=== PATIENT | female | born 1975 | race Native Hawaiian/Other Pacific Islander ===

== ENCOUNTER 2018-09-25 15:39 | Inpatient (IN) | payer OTHER ==
[2018-09-25] MEDS ORDERED: SODIUM CHLORIDE 0.9% 1,000 ML IV STA (16:06)
[2018-09-25] MEDS ORDERED: MAG HYDROX/AL HYDROX/SIMETH 30 ML, HYOSCYAMINE ELIXIR 10 ML, CIMETIDINE HCL 300 MG, LID... PO STA ×4 (16:07)
[2018-09-25] MEDS ORDERED: ONDANSETRON 4 MG/2 ML VIAL IVP STA (16:07)
[2018-09-25 16:19] LABS: Basophils % (A) 0 %; Eosinophils # (A) 0.1 k/uL (0-0.7); Eosinophils % (A) 1 %; HCT 44.4 % (34.0-46.0); HGB 14.9 gm/dL (11.4-16.0); Lymphocytes # (A) 1.4 k/uL (1.0-4.8); Lymphocytes % (A) 10 %; MCH 28.6 pg (25.0-35.0); MCHC 33.6 g/dL (31.0-37.0); MCV 85.1 fL (80.0-100.0); Mean Platelet Volume 7.2; Monocytes # (A) 0.3 k/uL (0-1.0); Monocytes % (A) 2 %; Neutrophils # (A) 11.3 k/uL (1.3-7.7); Neutrophils % (A) 86 %; Platelet Count 318 k/uL (150-450); RBC 5.22 m/uL (3.80-5.40); RDW 12.9 % (11.5-15.5); WBC 13.1 k/uL (3.8-10.6)
[2018-09-25 16:32] LABS: ALT 44 U/L (9-52); AST 70 U/L (14-36); Albumin 4.7 g/dL (3.5-5.0); Alkaline Phosphatase 123 U/L (38-126); Amylase <30 U/L (30-110); Anion Gap 15 mmol/L; Blood Urea Nitrogen 13 mg/dL (7-17); Calcium 10.1 mg/dL (8.4-10.2); Carbon Dioxide 22 mmol/L (22-30); Chloride 100 mmol/L (98-107); Glucose 349 mg/dL (74-99); Lipase 51 U/L (23-300); Magnesium 1.3 mg/dL (1.6-2.3); Potassium 4.5 mmol/L (3.5-5.1); Sodium 137 mmol/L (137-145); Total Bilirubin 0.6 mg/dL (0.2-1.3); Total Protein 8.4 g/dL (6.3-8.2)
--- NOTE | 2018-09-25 16:40 | ED ---
General Adult HPI - General Chief complaint: Nausea/Vomiting/Diarrhea Stated complaint: Vomiting Time Seen by Provider: 09/25/18 15:55 Source: patient Mode of arrival: ambulatory Limitations: no limitations - History of Present Illness Initial comments: 43-year-old female with a past medical history of anemia, menstrual disorder presents to the emergency department for a chief complaint of burning chest pain 10 days. Patient states the pain starts in her chest it radiates to her back. Patient states that over the past and days and has been intermittent in severity. She states it has been so severe at times that she is nauseous. Today patient states it has been nonstop and she has vomited due to the pain. Patient states when the pain is severe she does have associated shortness of breath but otherwise does not feel short of breath. Patient states sitting up makes the pain feel better. Otherwise she is not sure what makes the pain feel worse. Patient denies abdominal pain. Patient has no other complaints at this time including abdominal pain, headache, or visual changes. - Related Data Home Medications Medication Instructions Recorded Confirmed Omeprazole Magnesium [PriLOSEC OTC] 20 mg PO ONCE PRN 09/25/18 09/25/18 Ranitidine HCl 150 mg PO ONCE PRN 09/25/18 09/25/18 Allergies Allergy/AdvReac Type Severity Reaction Status Date / Time latex Allergy Rash/Hives Verified 09/25/18 16:17 codeine AdvReac Nausea & Verified 09/25/18 16:17 Vomiting levofloxacin [From Levaquin] AdvReac Nausea & Verified 09/25/18 16:17 Vomiting Review of Systems ROS Statement: Those systems with pertinent positive or pertinent negative responses have been documented in the HPI. ROS Other: All systems not noted in ROS Statement are negative. Past Medical History Additional Past Medical History / Comment(s): menstrual disorder, current yeast infection, anemia, transfusion 10/2013 History of Any Multi-Drug Resistant Organisms: None Reported Past Surgical History: Ablation, Section, Tonsillectomy Additional Past Surgical History / Comment(s): benign lymph node removed in neck , D&C Past Anesthesia/Blood Transfusion Reactions: Postoperative Nausea & Vomiting ( PONV) Additional Past Anesthesia/Blood Transfusion Reaction / Comment(s): states severe Past Psychological History: No Psychological Hx Reported Smoking Status: Never smoker Past Alcohol Use History: Rare Past Drug Use History: None Reported General Exam Limitations: no limitations General appearance: alert, in no apparent distress Head exam: Present: atraumatic, normocephalic, normal inspection Eye exam: Present: normal appearance, PERRL, EOMI. Absent: scleral icterus, conjunctival injection, periorbital swelling ENT exam: Present: normal exam, mucous membranes moist Neck exam: Present: normal inspection. Absent: tenderness, meningismus, lymphadenopathy Respiratory exam: Present: normal lung sounds bilaterally. Absent: respiratory distress, wheezes, rales, rhonchi, stridor Cardiovascular Exam: Present: regular rate, normal rhythm, normal heart sounds. Absent: systolic murmur, diastolic murmur, rubs, gallop, clicks GI/Abdominal exam: Present: soft, tenderness (tenderness noted to epigastric area. No tenderness in the right or left upper quadrants. Minimal left lower quadrant tenderness, no right lower quadrant tenderness.), normal bowel sounds. Absent: distended, guarding, rebound, rigid Course Vital Signs 09/25/18 15:49 Temperature 97.5 F L Pulse Rate 92 Respiratory 18 Rate Blood Pressure 132/88 O2 Sat by Pulse 100 Oximetry EKG Findings - EKG Comments: EKG Findings:: 16:08 normal sinus rhythm, ventricular rate 91, IL interval 154, QTc 472. 16:59 normal sinus rhythm, ventricular rate 82, QRS sabianist 78, QTc 462 Medical Decision Making - Medical Decision Making 43-year-old female presents to the emergency department for a chief complaint of burning chest pain 10 days. Patient states it has been intermittent for the past 10 days but today did worsen and has been constant. Patient states the pain radiates to her back. Patient states she does get short of breath when she has this pain as well as diaphoretic. Patient has also been nauseous and vomiting. Patient denies any past cardiac history. She denies any significant family history. On exam patient does have epigastric tenderness noted, lungs are clear to all station bilaterally. Regular rate and rhythm, no murmurs noted. CBC is unremarkable however troponin is elevated at 0.325. Total creatine kinase is elevated at 251 and CK-MB is elevated at 10.2. Patient was given aspirin. CT was ordered to ensure there was no dissection as patient was having back pain which was negative. Patient was then started on heparin. Amylase and lipase are stable. Magnesium is low at 1.3. Patient was started on 3 g of magnesium replacement. Glucose is elevated at 349, patient does not have any history of diabetes. Patient was given 5 units of insulin IV. Patient will be admitted to telemetry for an STEMI, hypomagnesemia, and hyper glycemia. - Lab Data Result diagrams: 18 16:06 12 16:06 Lab Results 09/25/18 09/25/18 09/25/18 Range/Units 16:06 16:06 16:06 WBC 13.1 H (3.8-10.6) k/uL RBC 5.22 (3.80-5.40) m/uL Hgb 14.9 (11.4-16.0) gm/dL Hct 44.4 (34.0-46.0) % MCV 85.1 (80.0-100.0) fL MCH 28.6 (25.0-35.0) pg MCHC 33.6 (31.0-37.0) g/dL RDW 12.9 (11.5-15.5) % Plt Count 318 (150-450) k/uL Neutrophils % 86 % Lymphocytes % 10 % Monocytes % 2 % Eosinophils % 1 % Basophils % 0 % Neutrophils # 11.3 H (1.3-7.7) k/uL Lymphocytes # 1.4 (1.0-4.8) k/uL Monocytes # 0.3 (0-1.0) k/uL Eosinophils # 0.1 (0-0.7) k/uL Basophils # 0.0 (0-0.2) k/uL PT (9.0-12.0) sec INR (<1.2) APTT (22.0-30.0) sec Sodium 137 (137-145) mmol/L Potassium 4.5 (3.5-5.1) mmol/L Chloride 100 (98-107) mmol/L Carbon Dioxide 22 (22-30) mmol/L Anion Gap 15 mmol/L BUN 13 (7-17) mg/dL Creatinine 0.46 L (0.52-1.04) mg/dL Est GFR (CKD-EPI)AfAm >90 (>60 ml/min/1.73 sqM) Est GFR (CKD-EPI)NonAf >90 (>60 ml/min/1.73 sqM) Glucose 349 H (74-99) mg/dL Calcium 10.1 (8.4-10.2) mg/dL Magnesium 1.3 L (1.6-2.3) mg/dL Total Bilirubin 0.6 (0.2-1.3) mg/dL AST 70 H (14-36) U/L ALT 44 (9-52) U/L Alkaline Phosphatase 123 (38-126) U/L Total Creatine Kinase 251 H (30-135) U/L CK-MB (CK-2) 10.2 H (0.0-2.4) ng/mL CK-MB (CK-2) Rel Index 4.1 Troponin I 0.325 H* (0.000-0.034) ng/mL Total Protein 8.4 H (6.3-8.2) g/dL Albumin 4.7 (3.5-5.0) g/dL Amylase <30 L (30-110) U/L Lipase 51 (23-300) U/L 09/25/18 Range/Units 16:06 WBC (3.8-10.6) k/uL RBC (3.80-5.40) m/uL Hgb (11.4-16.0) gm/dL Hct (34.0-46.0) % MCV (80.0-100.0) fL MCH (25.0-35.0) pg MCHC (31.0-37.0) g/dL RDW (11.5-15.5) % Plt Count (150-450) k/uL Neutrophils % % Lymphocytes % % Monocytes % % Eosinophils % % Basophils % % Neutrophils # (1.3-7.7) k/uL Lymphocytes # (1.0-4.8) k/uL Monocytes # (0-1.0) k/uL Eosinophils # (0-0.7) k/uL Basophils # (0-0.2) k/uL PT 10.0 (9.0-12.0) sec INR 0.9 (<1.2) APTT 20.8 L (22.0-30.0) sec Sodium (137-145) mmol/L Potassium (3.5-5.1) mmol/L Chloride (98-107) mmol/L Carbon Dioxide (22-30) mmol/L Anion Gap mmol/L BUN (7-17) mg/dL Creatinine (0.52-1.04) mg/dL Est GFR (CKD-EPI)AfAm (>60 ml/min/1.73 sqM) Est GFR (CKD-EPI)NonAf (>60 ml/min/1.73 sqM) Glucose (74-99) mg/dL Calcium (8.4-10.2) mg/dL Magnesium (1.6-2.3) mg/dL Total Bilirubin (0.2-1.3) mg/dL AST (14-36) U/L ALT (9-52) U/L Alkaline Phosphatase (38-126) U/L Total Creatine Kinase (30-135) U/L CK-MB (CK-2) (0.0-2.4) ng/mL CK-MB (CK-2) Rel Index Troponin I (0.000-0.034) ng/mL Total Protein (6.3-8.2) g/dL Albumin (3.5-5.0) g/dL Amylase (30-110) U/L Lipase (23-300) U/L Disposition Clinical Impression: NSTEMI (non-ST elevated myocardial infarction), Hypomagnesemia, Hyperglycemia Disposition: ADMITTED IP TO THIS HOSP Condition: Good Is patient prescribed a controlled substance at d/c from ED?: No Referrals: Christopher Bangura MD [Primary Care Provider] - 1-2 days Time of Disposition: 18:45
[2018-09-25 16:41] LABS: INR 0.9 (<1.2)
[2018-09-25 16:48] LABS: Creatine Kinase MB 10.2 ng/mL (0.0-2.4)
[2018-09-25 16:49] LABS: Troponin I 0.325 ng/mL (0.000-0.034)
[2018-09-25 16:51] LABS: Partial Thromboplastin Time 20.8 sec (22.0-30.0)
[2018-09-25] MEDS ORDERED: Magnesium Replacement Protocol 1 EACH MISC MISCELLANE PRN (16:53)
[2018-09-25] MEDS ORDERED: METOCLOPRAMIDE 5 MG/ML 2 ML VIAL IVP STA (17:35)
[2018-09-25] MEDS ORDERED: ASPIRIN 81 MG PO STA (17:37)
[2018-09-25] MEDS: MAGNESIUM SULFATE-D5W PMX 1 GM in DEXTROSE/WATER 1 100ML.BAG IVPB SCH ×3 (17:44→22:41)
--- NOTE | 2018-09-25 18:09 | CT ---
EXAMINATION TYPE: CT ChestAbdPelvis w con DATE OF EXAM: 09/25/2018 COMPARISON: None HISTORY: chest pain, vomiting CT DLP: 734.4 mGycm Automated exposure control for dose reduction was used. CONTRAST: CT scan of the chest, abdomen and pelvis is performed without Oral Contrast and with IV Contrast, pat ient injected with 100 mL of Isovue 370. FINDINGS: There is minimal interstitial increased density in the lower lung hughes and more on the left side. H eart appears enlarged. There is no pericardial effusion. There is no pleural effusion. There is no me diastinal adenopathy. There is no evidence of thoracic aortic aneurysm or dissection. There are no hi lar masses. There is slight decreased density in the liver consistent with fatty infiltration. There is no discre te liver mass. Gallbladder appears normal. Bile ducts are not dilated. Spleen and pancreas appear nor mal. The stomach appears normal. There is no adrenal mass. Kidneys show satisfactory contrast opacification. There is no hydronephrosi s. There is no retroperitoneal adenopathy. Bladder distends smoothly. There is no inguinal hernia. There is no evidence of a pelvic mass. Append ix appears normal. There is no free fluid in the pelvis. There is no evidence of mesenteric edema or adenopathy. I see no intestinal wall thickening. There are no dilated loops. There are a few small si gmoid diverticula. The thoracic and lumbar spine are intact. IMPRESSION: There is minimal pulmonary interstitial density that is nonspecific and could relate to i nterstitial pneumonia. Mild cardiomegaly. Fatty infiltration of the liver. No acute abnormality seen in the abdomen and pelvis.
[2018-09-25] MEDS ORDERED: HEPARIN SODIUM,PORCINE 5,000 UNIT/ML 1 ML VIAL IV PRN (18:31)
[2018-09-25] MEDS ORDERED: HEPARIN SODIUM,PORCINE 5,000 UNIT/ML 1 ML VIAL IV ONE (18:31)
[2018-09-25] MEDS ORDERED: HEPARIN SOD,PORK IN 0.45% NACL 25,000 UNIT in 0.45% NACL 1 500ML.BAG IV SCH (18:45)
[2018-09-25] MEDS ORDERED: INSULIN REGULAR 100 UNIT/ML VIAL IV ONE (18:46)
[2018-09-25 20:27] LABS: Glucose,Whole Blood 300 mg/dL (75-99)
[2018-09-25] MEDS ORDERED: PANTOPRAZOLE 40 MG TABLET PO PRN (20:33)
[2018-09-25] MEDS: ONDANSETRON 4 MG/2 ML VIAL IVP PRN (20:45)
[2018-09-25] MEDS: NITROGLYCERIN SL TABS 0.4 MG TAB SUBLINGUAL PRN ×2 (20:45→20:59)
[2018-09-25] MEDS: METOPROLOL TARTRATE 25 MG TAB PO SCH (20:59)
[2018-09-25] MEDS: INSULIN ASPART 100 UNIT/ML 1 ML 10 ML VIAL SQ SCH (21:02)
[2018-09-25] MEDS: PANTOPRAZOLE 40 MG/10 ML VIAL IVP SCH (21:04)
[2018-09-25 22:52] LABS: Creatine Kinase MB 31.2 ng/mL (0.0-2.4)
[2018-09-25 22:58] LABS: Troponin I 1.89 ng/mL (0.000-0.034)
[2018-09-25] MEDS ORDERED: TEMAZEPAM 15 MG CAP PO PRN (23:17)
[2018-09-25] MEDS ORDERED: ACETAMINOPHEN TAB 500 MG TAB PO PRN (23:17)
[2018-09-25] MEDS ORDERED: NITROGLYCERIN OINT 1 INCH/GM PACKET TOPICAL STA (23:19)
[2018-09-25] MEDS: ALPRAZolam 0.25 MG TAB PO PRN (23:31)
--- NOTE | 2018-09-25 23:38 | XR ---
EXAMINATION TYPE: XR chest 1V portable DATE OF EXAM: 09/25/2018 COMPARISON: NONE HISTORY: Possible heart failure. Short of breath. TECHNIQUE: Single frontal view of the chest is obtained. FINDINGS: There is slight coarsening of the lung markings. Costophrenic angles are clear. There is n o overt heart failure. There are chest leads. Bony thorax is intact. IMPRESSION: Coarse lung markings. No heart failure seen.
[2018-09-25 23:54] LABS: Appearance,Urine Clear (Clear); Bilirubin,Urine Negative (Negative); Blood,Urine Small (Negative); Color,Urine Yellow; Glucose,Urine (UA) 4+ (Negative); Leukocyte Esterase,Urine Negative (Negative); Mucus,Urine Rare /hpf; Nitrite,Urine Negative (Negative); PH, Urine 5.5 (5.0-8.0); Protein,Urine 1+ (Negative); RBC,Urine 3 /hpf (0-5); Squamous Epithelial Cell,Urine 3 /hpf (0-4); Urobilinogen,Urine <2.0 mg/dL (<2.0); WBC,Urine 8 /hpf (0-5)
[2018-09-26 00:07] LABS: Specific Gravity,Urine 1.049 (1.001-1.035)
[2018-09-26 00:09] LABS: Ketones,Urine 2+ (Negative)
[2018-09-26] MEDS: NITROGLYCERIN SL TABS 0.4 MG TAB SUBLINGUAL PRN (01:53)
[2018-09-26 02:04] LABS: D-Dimer 0.51 mg/L FEU (<0.60)
[2018-09-26] MEDS ORDERED: SODIUM CHLORIDE 0.9% 1,000 ML in EMPTY BAG 1 BAG IV ONE (02:06)
[2018-09-26] MEDS ORDERED: ATORVASTATIN 80 MG TAB PO STA (02:06)
[2018-09-26] MEDS ORDERED: ASPIRIN 325 MG TAB PO STA (02:06)
[2018-09-26 02:07] LABS: Glucose,Whole Blood 310 mg/dL (75-99)
[2018-09-26] MEDS ORDERED: IV FLUID CONTINUATION 1,000 ML IV ONE (02:40)
[2018-09-26] MEDS ORDERED: VERAPAMIL 2.5 MG/ML 2 ML AMP ONE (02:50)
[2018-09-26] MEDS ORDERED: LIDOCAINE 1% INJ 10MG/ML (20 ML MDV) ONE (02:50)
[2018-09-26] MEDS ORDERED: MIDAZOLAM 2 MG/2 ML VIAL IV ONE (02:55)
[2018-09-26] MEDS ORDERED: LIDOCAINE 1% INJ 10MG/ML (20 ML MDV) SQ ONE (03:04)
[2018-09-26] MEDS: VERAPAMIL SYRINGE (5 MG/10 ML) IV ONE ×2 (03:07→04:00)
[2018-09-26] MEDS ORDERED: fentaNYL (PF) 50 MCG/ML 2 ML AMP ONE (03:09)
[2018-09-26] MEDS ORDERED: fentaNYL (PF) 50 MCG/ML 2 ML AMP IV ONE (03:11)
[2018-09-26] MEDS ORDERED: BIVALIRUDIN BOLUS 250 MG/50 ML IV ONE (03:22)
[2018-09-26] MEDS ORDERED: BIVALIRUDIN 250 MG in SODIUM CHLORIDE 0.9% 50 ML IV ONE (03:29)
[2018-09-26] MEDS ORDERED: IOPAMIDOL-370 100ML BTL INJ ONE ×2 (03:46→03:59)
[2018-09-26] MEDS ORDERED: ONDANSETRON 4 MG/2 ML VIAL ONE (03:49)
[2018-09-26] MEDS ORDERED: ONDANSETRON 4 MG/2 ML VIAL IVP ONE (03:51)
[2018-09-26] MEDS ORDERED: NITROGLYCERIN 1000MCG/10ML SYRINGE INTRACORON ONE (03:52)
[2018-09-26] MEDS ORDERED: niCARdipine Syringe (1,000 mcg/10 mL) INTRACORON ONE (03:55)
[2018-09-26] MEDS ORDERED: TICAGRELOR 90 MG TAB ONE (03:57)
[2018-09-26] MEDS ORDERED: TICAGRELOR 90 MG TAB PO ONE (03:59)
[2018-09-26] MEDS ORDERED: ZOLPIDEM 5 MG TAB PO PRN (04:06)
[2018-09-26] MEDS ORDERED: ATROPINE SULFATE 0.1 MG/ML 10ML SYRINGE IV PRN (04:06)
[2018-09-26] MEDS ORDERED: NITROGLYCERIN SL TABS 0.4 MG TAB SUBLINGUAL PRN (04:06)
[2018-09-26] MEDS ORDERED: RX INFO: IV CONTRAST WAS GIVEN 1 EACH MISC MISCELLANE PRN (04:06)
[2018-09-26] MEDS ORDERED: MAG HYDROX/AL HYDROX/SIMETH 30 ML CUP PO PRN (04:06)
[2018-09-26] MEDS ORDERED: FUROSEMIDE 10 MG/ML 4 ML VIAL ONE (04:15)
[2018-09-26 04:30] LABS: Glucose,Whole Blood 294 mg/dL (75-99)
[2018-09-26 05:38] LABS: Basophils % (A) 0 %; Eosinophils # (A) 0.1 k/uL (0-0.7); Eosinophils % (A) 0 %; HCT 43.6 % (34.0-46.0); HGB 14.4 gm/dL (11.4-16.0); Lymphocytes # (A) 1.1 k/uL (1.0-4.8); Lymphocytes % (A) 7 %; MCH 28.2 pg (25.0-35.0); MCV 85.5 fL (80.0-100.0); Monocytes # (A) 0.6 k/uL (0-1.0); Monocytes % (A) 4 %; Neutrophils % (A) 87 %; Platelet Count 316 k/uL (150-450); RDW 13.1 % (11.5-15.5)
[2018-09-26 05:54] LABS: Anion Gap 9 mmol/L; Blood Urea Nitrogen 12 mg/dL (7-17); Calcium 9.3 mg/dL (8.4-10.2); Carbon Dioxide 25 mmol/L (22-30); Chloride 104 mmol/L (98-107); Cholesterol 222 mg/dL (<200); Glucose 314 mg/dL (74-99); HDL Cholesterol 66 mg/dL (40-60); LDL Cholesterol,Calculated 120 mg/dL (0-99); Magnesium 1.8 mg/dL (1.6-2.3); Potassium 4.2 mmol/L (3.5-5.1); Sodium 138 mmol/L (137-145); Triglycerides 179 mg/dL (<150)
[2018-09-26 06:10] LABS: Creatine Kinase MB 93.5 ng/mL (0.0-2.4)
[2018-09-26] MEDS: ONDANSETRON 4 MG/2 ML VIAL IVP PRN (06:32)
[2018-09-26] MEDS ORDERED: METOCLOPRAMIDE 5 MG/ML 2 ML VIAL IVP PRN (06:34)
[2018-09-26] MEDS: SODIUM CHLORIDE 0.9% 1,000 ML IV SCH ×2 (06:40→17:54)
[2018-09-26] MEDS: ALPRAZolam 0.25 MG TAB PO PRN (07:05)
--- NOTE | 2018-09-26 07:24 | HP ---
HISTORY AND PHYSICAL I am covering for Dr. Bangura. DATE OF SERVICE: 09/25/2017 CHIEF COMPLAINT: Vomiting and chest pain. HISTORY OF PRESENT ILLNESS: This is a 43-year-old woman with a past medical history of multiple medical problems including anemia, transfusions, history of uterine ablation being followed by Dr. Bangura in the outpatient setting, is fairly active physically. The patient is planning to go on a half marathon in [employer] and patient is training with the treadmill. About 10 days ago patient had chest disorder in the anterior part of the chest which radiated to the back, which recurred on multiple occasions and the patient also had some shortness of breath and nausea and the patient unable to keep anything down. The patient has taken antacid medications because of . Patient came to [facility], admitted for further evaluation and treatment. The troponin is found to be 0.325 and subsequently 1.89. EKG showed ST-T changes. Patient admitted for further evaluation and treatment. Her blood sugar is also elevated. There is no history of fever, chills, or rigors. No history of headache, loss of consciousness, seizures at this time. The pain was characterized as vague discomfort and not associated with setting of palpitations. The patient was also found to have high blood sugars at 349 pm and 300 at this time. PAST MEDICAL HISTORY: History of uterine ablation, anemia. HOME MEDICATIONS ARE: 1. Ranitidine 150 mg once. 2. Omeprazole once. ALLERGIES: LATEX, CODEINE, LEVAQUIN. FAMILY HISTORY: History of heart disease in the family. SOCIAL HISTORY: No history of smoking. No history of alcohol intake. REVIEW OF SYSTEMS: ENT: No diminished hearing or vision. CARDIOVASCULAR: As mentioned earlier. RESPIRATORY: As mentioned earlier. GI: As mentioned earlier. : No dysuria. NERVOUS SYSTEM: No numbness or weakness. ALLERGY/IMMUNOLOGY: No asthma. MUSCULOSKELETAL: As mentioned earlier. HEMATOLOGY: As mentioned earlier. RHEUMATOLOGY: As mentioned earlier. ENDOCRINE. No history of diabetes or hypothyroidism. CONSTITUTIONAL: As mentioned earlier. DERMATOLOGY: Negative. PSYCHIATRY: As mentioned earlier. DERMATOLOGY: Negative. PHYSICAL EXAM: Patient is alert, oriented x3. NERVOUS SYSTEM: Higher functions as mentioned earlier, moves all 4 limbs, no focal limbs. LYMPHATICS: No lymph node enlargement in the neck or axillae. SKIN: No ulcer, rash, bleeding. LABS: WBC 13.1, hemoglobin 14.9. APTT 20.8, creatinine is 0.46 and glucose 349. Magnesium is 1.3. His CK-MB is 10.2. Amylase less than 30. Acetone is negative. ASSESSMENT: 1. Acute non-ST segment elevation myocardial infarction. 2. Troponin 1.890. 3. New onset uncontrolled diabetes mellitus type 2 with hypoglycemia. 4. Hypomagnesemia. 5. Increased WBC, possibly reactive. 6. History of anemia. 7. History of uterine ablation. RECOMMENDATION: In this 43-year-old woman who presented with multiple complex medical issues, at this time will monitor the patient closely. Unstable angina protocol, acute coronary artery syndrome protocol. Otherwise, I would also recommend Cardiology consultation for possible cardiac cath. Repeat EKG and I would also recommend a portable chest x -ray, replace magnesium. The patient blood sugar is elevated. The patient probably had underlying diabetes mellitus type 2. Also. currently will continue with insulin coverage and scale also. Overall prognosis guarded because of multiple complex medical issues. Proton pump inhibitors will be given and a copy of this forwarded to Dr. Bangura who is the primary physician. Discussed with the patient, understands and agrees and Dr. Bangura will follow. MMODL / IJN: [id number] / MTDHelio
[2018-09-26 07:25] LABS: Glucose,Whole Blood 302 mg/dL (75-99)
--- NOTE | 2018-09-26 08:06 | P.HPIM ---
History of Present Illness H&P Date: 09/26/18 Chief Complaint: Chest pressure. This is a history of physical and a 43-year-old female who has no significant past medical history. The patient states for the last 10 days she' s been having intermittent chest pressure and thought it was heartburn. The pressure radiates to her back and she was having diaphoresis and nausea. Evaluation in emergency room showed an STEMI and she has been appropriately treated by cardiology at this time. Unfortunately, she has significant risk factors after evaluation including diabetes and cholesterol issues. The patient has been stabilized after treatment. Interestingly enough, she is quite active and has been training for half marathons intermittently over the last year. However, she admits her diet has been poor. No polyuria or polydipsia stated. Review of Systems Constitutional: Denies chills, Denies fever Eyes: denies blurred vision, denies pain Ears, nose, mouth and throat: Denies headache, Denies sore throat Cardiovascular: Reports as per HPI Respiratory: Reports as per HPI Gastrointestinal: Denies abdominal pain, Denies diarrhea, Denies nausea, Denies vomiting Genitourinary: Denies dysuria, Denies hematuria Past Medical History Additional Past Medical History / Comment(s): menstrual disorder, current yeast infection, anemia, transfusion 10/2013 History of Any Multi-Drug Resistant Organisms: None Reported Past Surgical History: Ablation, Section, Tonsillectomy Additional Past Surgical History / Comment(s): benign lymph node removed in neck , D&C Past Anesthesia/Blood Transfusion Reactions: Postoperative Nausea & Vomiting ( PONV) Additional Past Anesthesia/Blood Transfusion Reaction / Comment(s): states severe Past Psychological History: No Psychological Hx Reported Smoking Status: Never smoker Past Alcohol Use History: Rare Past Drug Use History: None Reported Medications and Allergies Home Medications Medication Instructions Recorded Confirmed Type Omeprazole Magnesium [PriLOSEC OTC] 20 mg PO ONCE PRN 09/25/18 09/25/18 History Ranitidine HCl 150 mg PO ONCE PRN 09/25/18 09/25/18 History Allergies Allergy/AdvReac Type Severity Reaction Status Date / Time latex Allergy Rash/Hives Verified 09/25/18 16:17 codeine AdvReac Nausea & Verified 09/25/18 16:17 Vomiting levofloxacin [From Levaquin] AdvReac Nausea & Verified 09/25/18 16:17 Vomiting Physical Exam Vitals: Vital Signs Temp Pulse Pulse Pulse Resp BP BP 09/26/18 07:00 95 16 126/86 09/26/18 06:30 87 16 114/73 09/26/18 06:00 99 16 118/80 09/26/18 05:30 99 16 120/86 09/26/18 05:15 86 16 119/81 09/26/18 05:00 87 16 116/83 09/26/18 04:45 98.1 F 90 16 120/79 09/26/18 01:51 96 142/87 09/25/18 23:03 86 18 109/70 09/25/18 20:21 98.3 F 100 16 136/85 09/25/18 19:30 108 H 11 L 130/95 09/25/18 19:01 101 H 10 L 142/100 09/25/18 18:30 24 09/25/18 18:00 84 26 H 136/100 09/25/18 17:30 96 19 154/104 09/25/18 17:00 86 15 140/95 09/25/18 16:30 84 13 148/110 09/25/18 16:02 09/25/18 15:49 97.5 F L 92 18 132/88 Pulse Ox 09/26/18 07:00 96 09/26/18 06:30 96 09/26/18 06:00 98 09/26/18 05:30 98 09/26/18 05:15 97 09/26/18 05:00 97 09/26/18 04:45 96 09/26/18 01:51 97 09/25/18 23:03 94 L 09/25/18 20:21 98 09/25/18 19:30 09/25/18 19:01 09/25/18 18:30 09/25/18 18:00 09/25/18 17:30 98 09/25/18 17:00 09/25/18 16:30 98 09/25/18 16:02 94 L 09/25/18 15:49 100 Intake and Output 09/25/18 09/26/18 09/26/18 22:59 06:59 14:59 Intake Total 124.8 Balance 124.8 Intake: IV 124.8 Other: # Voids 1 1 Weight 87.543 kg 83.1 kg - Constitutional General appearance: no acute distress - EENT Eyes: EOMI - Neck Neck: no lymphadenopathy - Respiratory Respiratory: bilateral: CTA - Cardiovascular Rhythm: regular Heart sounds: normal: S1, S2 Abnormal Heart Sounds: no S3 Gallop - Gastrointestinal General gastrointestinal: soft, no tenderness - Integumentary Integumentary: no cellulitis - Neurologic Neurologic: CNII-XII intact - Musculoskeletal Musculoskeletal: gait normal - Psychiatric Psychiatric: A&O x's 3, appropriate affect, intact judgment & insight Results CBC & Chem 7: 09/26/18 05:23 09/26/18 05:23 Labs: Abnormal Lab Results - Last 24 Hours (Table) 09/25/18 09/25/18 09/25/18 Range/Units 16:06 16:06 16:06 WBC 13.1 H (3.8-10.6) k/uL Neutrophils # 11.3 H (1.3-7.7) k/uL APTT (22.0-30.0) sec Creatinine 0.46 L (0.52-1.04) mg/dL Glucose 349 H (74-99) mg/dL POC Glucose (mg/dL) (75-99) mg/dL Magnesium 1.3 L (1.6-2.3) mg/dL AST 70 H (14-36) U/L Total Creatine Kinase 251 H (30-135) U/L CK-MB (CK-2) 10.2 H (0.0-2.4) ng/mL Troponin I 0.325 H* (0.000-0.034) ng/mL Total Protein 8.4 H (6.3-8.2) g/dL Triglycerides (<150) mg/dL Cholesterol (<200) mg/dL LDL Cholesterol, Calc (0-99) mg/dL HDL Cholesterol (40-60) mg/dL Amylase <30 L (30-110) U/L Ur Specific [place] (1.001-1.035) Urine Protein (Negative) Urine Glucose (UA) (Negative) Urine Ketones (Negative) Urine Blood (Negative) Urine WBC (0-5) /hpf Urine Mucus (None) /hpf 09/25/18 09/25/18 09/25/18 Range/Units 16:06 20:25 21:36 WBC (3.8-10.6) k/uL Neutrophils # (1.3-7.7) k/uL APTT 20.8 L (22.0-30.0) sec Creatinine (0.52-1.04) mg/dL Glucose (74-99) mg/dL POC Glucose (mg/dL) 300 H (75-99) mg/dL Magnesium (1.6-2.3) mg/dL AST (14-36) U/L Total Creatine Kinase 815 H (30-135) U/L CK-MB (CK-2) 31.2 H (0.0-2.4) ng/mL Troponin I 1.890 H* (0.000-0.034) ng/mL Total Protein (6.3-8.2) g/dL Triglycerides (<150) mg/dL Cholesterol (<200) mg/dL LDL Cholesterol, Calc (0-99) mg/dL HDL Cholesterol (40-60) mg/dL Amylase (30-110) U/L Ur Specific [place] (1.001-1.035) Urine Protein (Negative) Urine Glucose (UA) (Negative) Urine Ketones (Negative) Urine Blood (Negative) Urine WBC (0-5) /hpf Urine Mucus (None) /hpf 09/25/18 09/26/18 09/26/18 Range/Units 23:41 01:55 04:29 WBC (3.8-10.6) k/uL Neutrophils # (1.3-7.7) k/uL APTT (22.0-30.0) sec Creatinine (0.52-1.04) mg/dL Glucose (74-99) mg/dL POC Glucose (mg/dL) 310 H 294 H (75-99) mg/dL Magnesium (1.6-2.3) mg/dL AST (14-36) U/L Total Creatine Kinase (30-135) U/L CK-MB (CK-2) (0.0-2.4) ng/mL Troponin I (0.000-0.034) ng/mL Total Protein (6.3-8.2) g/dL Triglycerides (<150) mg/dL Cholesterol (<200) mg/dL LDL Cholesterol, Calc (0-99) mg/dL HDL Cholesterol (40-60) mg/dL Amylase (30-110) U/L Ur Specific [place] 1.049 H (1.001-1.035) Urine Protein 1+ H (Negative) Urine Glucose (UA) 4+ H (Negative) Urine Ketones 2+ H (Negative) Urine Blood Small H (Negative) Urine WBC 8 H (0-5) /hpf Urine Mucus Rare H (None) /hpf 09/26/18 09/26/18 09/26/18 Range/Units 05:23 05:23 05:23 WBC 15.0 H (3.8-10.6) k/uL Neutrophils # 13.0 H (1.3-7.7) k/uL APTT (22.0-30.0) sec Creatinine 0.46 L (0.52-1.04) mg/dL Glucose 314 H (74-99) mg/dL POC Glucose (mg/dL) (75-99) mg/dL Magnesium (1.6-2.3) mg/dL AST (14-36) U/L Total Creatine Kinase 3085 H* (30-135) U/L CK-MB (CK-2) 93.5 H (0.0-2.4) ng/mL Troponin I 167.000 H* (0.000-0.034) ng/mL Total Protein (6.3-8.2) g/dL Triglycerides 179 H (<150) mg/dL Cholesterol 222 H (<200) mg/dL LDL Cholesterol, Calc 120 H (0-99) mg/dL HDL Cholesterol 66 H (40-60) mg/dL Amylase (30-110) U/L Ur Specific [place] (1.001-1.035) Urine Protein (Negative) Urine Glucose (UA) (Negative) Urine Ketones (Negative) Urine Blood (Negative) Urine WBC (0-5) /hpf Urine Mucus (None) /hpf 09/26/18 09/26/18 Range/Units 05:23 07:24 WBC (3.8-10.6) k/uL Neutrophils # (1.3-7.7) k/uL APTT 35.2 H (22.0-30.0) sec Creatinine (0.52-1.04) mg/dL Glucose (74-99) mg/dL POC Glucose (mg/dL) 302 H (75-99) mg/dL Magnesium (1.6-2.3) mg/dL AST (14-36) U/L Total Creatine Kinase (30-135) U/L CK-MB (CK-2) (0.0-2.4) ng/mL Troponin I (0.000-0.034) ng/mL Total Protein (6.3-8.2) g/dL Triglycerides (<150) mg/dL Cholesterol (<200) mg/dL LDL Cholesterol, Calc (0-99) mg/dL HDL Cholesterol (40-60) mg/dL Amylase (30-110) U/L Ur Specific [place] (1.001-1.035) Urine Protein (Negative) Urine Glucose (UA) (Negative) Urine Ketones (Negative) Urine Blood (Negative) Urine WBC (0-5) /hpf Urine Mucus (None) /hpf Thrombosis Risk Factor Assmnt - Choose All That Apply Each Factor Represents 1 point: Age 41-60 years, Obesity (BMI >25) Other congenital or acquired thrombophilia - If yes, enter type in comment: No Thrombosis Risk Factor Assessment Total Risk Factor Score: 2 Thrombosis Risk Factor Assessment Level: Low Risk Assessment and Plan (1) Hyperglycemia Current Visit: Yes Status: Acute Code(s): R73.9 - HYPERGLYCEMIA, UNSPECIFIED SNOMED Code(s): 53898146 (2) Hypomagnesemia Current Visit: Yes Status: Acute Code(s): E83.42 - HYPOMAGNESEMIA SNOMED Code(s): 409352990 (3) NSTEMI (non-ST elevated myocardial infarction) Current Visit: Yes Status: Acute Code(s): I21.4 - NON-ST ELEVATION (NSTEMI) MYOCARDIAL INFARCTION SNOMED Code(s): 26826766 (4) Dysfunctional uterine bleeding Current Visit: No Status: Acute Code(s): N93.8 - OTHER SPECIFIED ABNORMAL UTERINE AND VAGINAL BLEEDING SNOMED Code(s): 21725849 Plan: We'll continue to follow cardiology treatment. Question need for endocrinology as sugar has been elevated. New. Check hemoglobin A1c if not done. Check CBC and CMP in a.m. We'll continue follow with consultants. See orders otherwise. Time with Patient: Greater than 30
[2018-09-26] MEDS: INSULIN ASPART 100 UNIT/ML 1 ML 10 ML VIAL SQ SCH ×6 (08:25→21:32)
[2018-09-26] MEDS: ASPIRIN 81 MG PO SCH (08:28)
[2018-09-26] MEDS: METOPROLOL TARTRATE 25 MG TAB PO SCH ×2 (08:28→21:31)
[2018-09-26] MEDS: PANTOPRAZOLE 40 MG/10 ML VIAL IVP SCH (08:28)
[2018-09-26] MEDS: LOSARTAN 25 MG TAB PO SCH (08:29)
[2018-09-26] MEDS: ATORVASTATIN 40 MG TAB PO SCH (08:29)
[2018-09-26] MEDS ORDERED: FUROSEMIDE 20 MG TAB PO SCH (09:00)
[2018-09-26] MEDS ORDERED: ASPIRIN 325 MG TAB PO SCH (09:00)
[2018-09-26] MEDS: FUROSEMIDE 20 MG TAB PO SCH (09:30)
[2018-09-26] MEDS: POTASSIUM CHLORIDE ER 10 MEQ TAB.ER.PRT PO SCH (09:31)
--- NOTE | 2018-09-26 10:12 | LTR ---
DATE OF SERVICE: 09/26/[address] Bangura: Thank you for the opportunity to participate in the care of Mrs. Angela Aquino. I am pleased to report to you that this lady had an excellent angiographic result. She presented with a 1 weeks history of chest pain that culminated in a prolonged persistent episode of chest pain with nausea and vomiting. Because of increased troponin and more prominent EKG changes, she underwent cardiac cath around 3:00 am this morning with excellent angiographic result of LAD that was totally occluded. She has no significant disease in other vessels. Thank you for your referral. Please call for questions. With kindest regards, Sincerely, MMELSAL / IJN: [id number] /
--- NOTE | 2018-09-26 10:12 | CC ---
CARDIAC CATHETERIZATION REPORT DATE OF SERVICE: 09/26/2018. PROCEDURE: 1. Left heart catheterization and coronary angiography. 2. PTCA and stenting of a totally occluded mid LAD performed in the setting of a non- ST elevation NV with 2 drug-eluting stents. PERFORMED BY: Dr. Joan Smart. SEDATION: Moderate conscious sedation time was 58 minutes. Patient received Versed and fentanyl and her oxygen saturation, hemodynamics and EKG were monitored closely. CLINICAL INFORMATION: Mrs. 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 She is a fairly active person. She does treadmill nearly 3 miles a session almost 3-4 times a week on a regular basis and does yoga. For about a week or so, she has been having discomfort in the chest on and off, but she did not think too much of it. She had a prolonged episode of discomfort today at yoga with nausea and vomiting. She went home and finally she continued to have discomfort in the chest which persisted. She came into the hospital. She had ST-T abnormality in the precordial leads with mild troponin elevation and was placed on a heparin drip in a telemetry unit. However, repeat troponin went up to 1.8 and she had a recurrence of pain with increased pressure in the chest and therefore she was advised prompt cardiac catheterization and brought down to the cardiac agriculture laborer. I saw the patient in the lab, evaluated her and again reviewed with her the rationale, risks, benefits, options and proceeded to perform the procedure. PROCEDURE NOTE: Under local anesthesia and strict aseptic precautions, a 6-Saudi Arabian introducer was placed in the right radial artery. Using a 3.5 left and a 4.0 right Monica catheters, I performed coronary angiography and a pigtail catheter was used to check LV pressures. Following the coronary angiography and left heart catheterization, I proceeded to perform PCI. A JL 3.5 6-Saudi Arabian guide catheter was used to cannulate the left coronary artery. The initial catheter I had difficulty aspirating the blood. Therefore I switched over to another JL3 0.5. With this, I got good seating. A run-through wire was used to cross the total occlusion in the mid LAD. Predilatation was performed with a 3.0 caliber 12 mm Trek balloon. Subsequently, I deployed a 3.5 caliber Xience stent at 13 atmospheres at the site of the lesion. This seemed to be a very difficult lesion requiring higher pressures. An additional 8 mm 3.5 caliber Xience stent was telescoped distal to the previous stent. The patient had relief of chest pain. EKG changes of ST- T abnormality in the precordial leads persisted. Both the stents were then dilated with a 3.75 caliber 15 mm long NC Trek balloon up to 14 atmospheres. Excellent angiographic result was achieved without complication. The sheath was then taken out and a TR band applied as per protocol and the saturation in the fingers of the right hand was 98%. The patient tolerated the procedure well without complications. She received Brilinta 180 mg p.o. and also received Angiomax bolus and infusion. She had some nausea on the table that required some Zofran. Excellent angiographic result without complication was achieved. CARDIAC CATHETERIZATION FINDINGS: Left ventricle end-diastolic pressure was 26 mmHg without any gradient across aortic valve. LV gram was not performed. CORONARY ANGIOGRAPHY FINDINGS: RIGHT CORONARY ARTERY: Technically this is a dominant vessel, gives off a conus branch that is almost parallel to the RCA origin superior to it. The dominant RCA distally bifurcates into 2 branches, has no significant disease in the RCA and gives off a large PDA a smaller PLV, both of which supply a fairly good amount of myocardium. This is a superdominant RCA. There is a conus branch that comes off from the RCA and the location of the conus branch almost looks like a separate but parallel origin superior to the RCA origin. Even the conus branch is free of significant disease. LEFT MAIN: The left main coronary artery is a short patent disease-free vessel that bifurcates into LAD and circumflex. LEFT ANTERIOR DESCENDING CORONARY ARTERY: This is a good caliber vessel extends along the anterior wall and gives off a good-sized diagonal branch and a septal branch and after this there is a smaller diagonal branch. Then the vessel is totally occluded without any antegrade flow. The LAD therefore has a total 100% occlusion in the mid portion after large and a small diagonal and a good-sized septal branch. There is no antegrade flow noted. LEFT POSTERIOR CIRCUMFLEX CORONARY ARTERY: This vessel is nondominant, gives off a single obtuse marginal, runs in the AV groove has minor irregularities but no significant disease is noted. FINAL IMPRESSION: This patient has a total occlusion of the mid LAD, which is the culprit vessel for her presentation with precordial ST changes. There is no significant disease in the nondominant circumflex and the dominant RCA is free of significant disease, but the filling pressures are elevated without any gradient across aortic valve. An LV-gram was not performed. PCI PROCEDURE RESULT: PCI of a totally occluded mid LAD was performed with 2 drug-eluting stents of 3.5 caliber 12 mm proximal and 8 mm distal. This was a Xience drug-eluting stents. Excellent angiographic result without complication was achieved. Results were discussed with the patient in detail. I could not reach any family members and patient's 's cellphone was going to [place], so we he left a message before the procedure and also after the completion of the procedure. She was sent to the ICU in a stable condition. MMTITA / ROSANGELAN: [id number] /
--- NOTE | 2018-09-26 10:36 | CONS ---
CONSULTATION Mrs. 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 She also does yoga. For about a week and a half, and to be more precise on September 15, this lady had her first episode of chest discomfort when she was on the treadmill after walking 1 mile. She stopped and felt better, did not have any issues for the next 3 days. Subsequently, she had again episodes of chest tightness, heaviness and pressure, which she did not think too much about. However, she came in for yoga early this morning and during the Yoga she went home on to have mild chest discomfort, persistent nausea, vomiting, and she went home and finally came into the hospital at the insistence of her . After arrival, she did not have much chest discomfort, had a very subtle EKG changes in the anterior wall with mild troponin elevation. She was placed on heparin drip and admitted to the telemetry unit, but she had more persistent pain and more prominent precordial ST and T-wave abnormality and therefore she was advised coronary angiography. Dr. Dumont talked to the telemetry unit and advised prompt cardiac catheterization and activated the cardiac cath team. I saw the patient in the logging rafter laborer, reviewed with her the rationale, risks, benefits, options and proceeded with cardiac cath. I tried to reach the , but he did not answer the phone and therefore we left a message from the logging rafter laborer. At the time of my evaluation, she was having about a 1 to 2/10 discomfort in the chest with a precordial ST and T-wave abnormality. PAST MEDICAL HISTORY: Unremarkable for any major medical problems, specifically she does not have any hypertension, diabetes, myocardial infarction or CVA. MEDICATIONS: She occasionally takes some Zantac or omeprazole. ALLERGIES: She is allergic to CODEINE and LEVAQUIN and LATEX. CORONARY RISK FACTORS: Essentially no risk factors. Patient is not a smoker. Has no hypertension, diabetes and cholesterol status is unknown. PHYSICAL EXAMINATION: Blood pressure is 128/70, pulse rate is 90 per minute, irregular. HEENT: Unremarkable. Fundus was not examined by me. Neck is supple. No JVD. I do not hear a carotid bruit. Heart exam reveals S1, S2 heard normally. No rub, murmur or gallop. Lungs are clear. Abdomen is soft, nontender. Lower extremities reveal normal pulses. No edema. Central nervous system is normal. EKG revealed precordial ST and T-wave changes with elevated troponin suggestive of non- ST elevation SC. IMPRESSION: 1. Acute non-ST elevation myocardial infarction with persistent chest pain and elevation in troponin. 2. Patient has been having angina for at least a week and a half or so with symptoms strongly suggestive of angina that she has ignored and continued to exercise. RECOMMENDATIONS: Prompt cardiac cath was advised and this was performed expeditiously. Rationale, risks, benefits, options were explained to the patient in detail. I could not reach her by phone and a message was left for him. RILEY / ARNOLDO: [id number] /
[2018-09-26 10:42] VITALS: BMI 30.4
[2018-09-26 12:01] LABS: Glucose,Whole Blood 292 mg/dL (75-99)
[2018-09-26] MEDS ORDERED: INSULIN DETEMIR 100 UNIT/ML 10 ML VIAL SQ ONE (16:30)
--- NOTE | 2018-09-26 16:30 | PN ---
PROGRESS NOTE This is a 43-year-old lady whom I evaluated early this morning when she had chest pain and more prominent precordial ST-T changes and therefore underwent a cardiac catheterization which revealed total occlusion of mid LAD that was promptly stented with excellent angiographic result. Procedure was performed from the right radial approach. She is doing very well, seems a bit exhausted. Denies any chest pain. She is slightly tachycardic and there are fine rales. I am going to add a small dose of oral Lasix and check a B P tomorrow. Echo revealed a hypokinetic segment involving the mid and apical septal wall as well as the adjoining anteroapical wall, but I think most of this is hopefully stunning and she will recover very well. I discussed the findings on the echo as well as the cardiac cath with the patient and her . Her was not there immediately after the procedure. Her vital signs are stable. Blood pressure is 110/70. Pulse rate is about 88 per minute. S1 and S2 heard normally. Lungs reveal bilateral fine basal rales. Abdomen is is soft, nontender. Lower extremities reveal palpable pulses. Right radial site is clean and dry and the TR band is deflated completely. We will keep her in the ICU and gradually increase activity today. MMODL / IJN: [id number] /
[2018-09-26 17:37] LABS: Glucose,Whole Blood 333 mg/dL (75-99)
[2018-09-26 17:39] LABS: Glucose,Whole Blood 321 mg/dL (75-99)
[2018-09-26 18:32] LABS: Glucose,Whole Blood 382 mg/dL (75-99)
--- NOTE | 2018-09-26 18:32 | ECHOF ---
Referral Reason:NSTEMI---S/P LAD PCI MEASUREMENTS -------- HEIGHT: 165.1 cm WEIGHT: 87.5 kg BP: RVIDd: 2.7 cm (< 3.3) IVSd: 1.4 cm (0.6 - 1.1) LVIDd: 4.4 cm (3.9 - 5.3) LVPWd: 1.2 cm (0.6 - 1.1) IVSs: 1.7 cm LVIDs: 3.3 cm LVPWs: 1.7 cm LA Diam: 3.7 cm (2.7 - 3.8) LAESV Index (A-L): 22.85 ml/m Ao Diam: 3.3 cm (2.0 - 3.7) AV Cusp: 2.1 cm (1.5 - 2.6) MV EXCURSION: 9.761 mm (> 18.000) MV EF SLOPE: 38 mm/s (70 - 150) EPSS: 1.4 cm MV E Lee: 0.94 m/s MV DecT: 171 ms MV A Lee: 1.26 m/s MV E/A Ratio: 0.74 FINDINGS -------- Sinus rhythm. This was a technically good study. The left ventricular size is normal. There is moderate concentric left ventricular hypertrophy. O verall left ventricular systolic function is moderate-severely impaired with, an EF between 30 - 35 % . Mid anterior LV wall motion is hypokinetic. Mid anteroseptal LV wall motion is hypokinetic. Apical anterior LV wall motion is hypokinetic. Apical lateral LV wall motion is hypokinetic. A pical septum LV wall motion is hypokinetic. The right ventricle is normal in size. Normal LA size by volume 22+/-6 ml/m2. The right atrium is normal in size. The aortic valve is trileaflet and appears structurally normal. The mitral valve is normal. Mild mitral regurgitation is present. The tricuspid valve appears structurally normal. Trace/mild (physiologic) pulmonic regurgitation. The aortic root size is normal. Normal inferior vena cava with normal inspiratory collapse consistent with estimated right atrial pre ssure of 5 mmHg. There is no pericardial effusion. CONCLUSIONS -------- 1. Sinus rhythm. 2. This was a technically good study. 3. The left ventricular size is normal. 4. There is moderate concentric left ventricular hypertrophy. 5. Overall left ventricular systolic function is moderate-severely impaired with, an EF between 30 - 35 %. 6. Mid anterior LV wall motion is hypokinetic. 7. Mid anteroseptal LV wall motion is hypokinetic. 8. Apical anterior LV wall motion is hypokinetic. 9. Apical lateral LV wall motion is hypokinetic. 10. Apical septum LV wall motion is hypokinetic. 11. Normal LA size by volume 22+/-6 ml/m2. 12. The aortic valve is trileaflet and appears structurally normal. 13. Mild mitral regurgitation is present. 14. The tricuspid valve appears structurally normal. 15. Trace/mild (physiologic) pulmonic regurgitation. 16. The aortic root size is normal. 17. Normal inferior vena cava with normal inspiratory collapse consistent with estimated right atrial pressure of 5 mmHg. 18. There is no pericardial effusion. CONTROL TOWER RADIO OPERATOR: Marian Colón RDCS
[2018-09-26 21:05] LABS: Glucose,Whole Blood 180 mg/dL (75-99)
[2018-09-26] MEDS: CLOPIDOGREL 75 MG TAB PO SCH (21:31)
[2018-09-27 04:00] LABS: Glucose,Whole Blood 188 mg/dL (75-99)
[2018-09-27] MEDS ORDERED: CLOPIDOGREL 75 MG TAB PO SCH (04:08)
[2018-09-27 05:52] LABS: Basophils % (A) 0 %; Eosinophils % (A) 0 %; HCT 40.2 % (34.0-46.0); Lymphocytes # (A) 2.5 k/uL (1.0-4.8); Lymphocytes % (A) 24 %; MCH 27.6 pg (25.0-35.0); MCHC 32.4 g/dL (31.0-37.0); MCV 85.3 fL (80.0-100.0); Mean Platelet Volume 7.2; Monocytes # (A) 0.6 k/uL (0-1.0); Monocytes % (A) 6 %; Neutrophils # (A) 6.9 k/uL (1.3-7.7); Neutrophils % (A) 68 %; Platelet Count 258 k/uL (150-450); RBC 4.71 m/uL (3.80-5.40); WBC 10.2 k/uL (3.8-10.6)
[2018-09-27 06:04] LABS: ALT 50 U/L (9-52); AST 131 U/L (14-36); Albumin 3.6 g/dL (3.5-5.0); Alkaline Phosphatase 78 U/L (38-126); Anion Gap 6 mmol/L; Blood Urea Nitrogen 17 mg/dL (7-17); Calcium 8.9 mg/dL (8.4-10.2); Carbon Dioxide 27 mmol/L (22-30); Chloride 103 mmol/L (98-107); Glucose 176 mg/dL (74-99); Magnesium 1.7 mg/dL (1.6-2.3); Potassium 3.7 mmol/L (3.5-5.1); Sodium 136 mmol/L (137-145); Total Bilirubin 0.8 mg/dL (0.2-1.3); Total Protein 6.6 g/dL (6.3-8.2)
[2018-09-27] MEDS: MAGNESIUM SULFATE-D5W PMX 1 GM in DEXTROSE/WATER 1 100ML.BAG IVPB SCH ×2 (06:41→08:48)
[2018-09-27 06:51] LABS: Glucose,Whole Blood 170 mg/dL (75-99)
[2018-09-27] MEDS: INSULIN ASPART 100 UNIT/ML 1 ML 10 ML VIAL SQ SCH ×7 (07:10→20:53)
[2018-09-27 07:50] LABS: Glucose,Whole Blood 210 mg/dL (75-99)
[2018-09-27] MEDS ORDERED: POTASSIUM CHLORIDE ER 20 MEQ TAB.ER PO SCH (08:00)
[2018-09-27] MEDS: FUROSEMIDE 20 MG TAB PO SCH (08:45)
[2018-09-27] MEDS: PANTOPRAZOLE 40 MG/10 ML VIAL IVP SCH (08:45)
[2018-09-27] MEDS: CLOPIDOGREL 75 MG TAB PO SCH (08:45)
[2018-09-27] MEDS: ATORVASTATIN 40 MG TAB PO SCH (08:46)
[2018-09-27] MEDS: LOSARTAN 25 MG TAB PO SCH (08:46)
[2018-09-27] MEDS: ASPIRIN 81 MG PO SCH (08:46)
--- NOTE | 2018-09-27 09:54 | PN ---
PROGRESS NOTE Mrs. Funes is in sinus rhythm. She is doing better, heart rate is better. She has complained of some headache. Her lungs are clear. Her potassium is at 3.7, I will get 20 mEq of potassium, increase activity and plan to move her to telemetry. She has a mid LAD occlusion which was opened up. She has an ejection fraction in the 35% range, but I think most of this is stunning and I expect that there will be much better recovery of LV function. Patient is planning on going to [employer] sometime in the [place] time. I told her that as long as she uses a wheelchair to get around and does not walk 5-6 miles as she had originally planned to do she may be okay. I also advised that she should probably not take the rides, but the patient is not planning on doing this. Vitals are stable. There is no JVD or carotid bruit. S1-S2 heard normally. Lungs are clear. Abdomen and lower extremity exam unchanged. The right radial cath site is clean and dry with good pulse. Plan is to continue current medications, supplement potassium, increase activity and move her to telemetry. Blood pressure in the range of 95-100, we will continue the same medications. MMODL / IJN: [id number] /
[2018-09-27 12:23] LABS: Glucose,Whole Blood 133 mg/dL (75-99)
[2018-09-27] MEDS: POTASSIUM CHLORIDE ER 10 MEQ TAB.ER.PRT PO SCH (12:23)
[2018-09-27] MEDS: METOPROLOL TARTRATE 25 MG TAB PO SCH ×2 (12:24→20:58)
--- NOTE | 2018-09-27 16:42 | P.PN ---
Subjective Progress Note Date: 09/27/18 Principal diagnosis: This is a patient who is postop day #2 4 status post WA with multiple stent placement to the LAD. She is feeling much better. She has an underlying history of newly diagnosed insulin dependent diabetes. The patient otherwise feels much better. No voiding difficulties nor no significant nausea, vomiting or diarrhea stated. Objective - Vital Signs Vital signs: Vital Signs Temp 98 F 09/27/18 12:00 Pulse 87 09/27/18 12:00 Resp 17 09/27/18 12:00 BP 98/64 09/27/18 12:00 Pulse Ox 96 09/27/18 12:00 Intake & Output 09/26/18 09/27/18 09/27/18 18:59 06:59 18:59 Intake Total 825 240 460 Output Total 1050 300 Balance -225 -60 460 Weight 83.1 kg 85 kg Intake: IV 825 240 220 Magnesium Sulfate-D5w Pmx 200 1 gm In Dextrose/Water 1 100ml.bag @ 100 mls/hr IVPB Q1H FILIBERTO Rx#: [id number] Sodium Chloride 0.9% 1, 825 240 20 000 ml @ 75 mls/hr IV . [id number] FILIBERTO Rx#:[id number] Oral 240 Output: Urine 1050 300 Other: Voiding Method Toilet Toilet Toilet # Voids 1 1 2 - Constitutional General appearance: Present: average body habitus - Neck Neck: Present: lymphadenopathy - Respiratory Respiratory: bilateral: CTA - Cardiovascular Rhythm: regular Heart sounds: normal: S1, S2 Abnormal Heart Sounds: Absent: S3 Gallop - Gastrointestinal General gastrointestinal: Present: soft. Absent: tenderness - Neurologic Neurologic: Present: CNII-XII intact. Absent: focal deficits - Labs CBC & Chem 7: 09/27/18 05:09 09/27/18 05:09 Labs: Abnormal Lab Results - Last 24 Hours (Table) 09/26/18 09/26/18 09/26/18 Range/Units 05:23 17:36 17:37 Sodium (137-145) mmol/L Creatinine (0.52-1.04) mg/dL Glucose (74-99) mg/dL POC Glucose (mg/dL) 333 H 321 H (75-99) mg/dL Hemoglobin A1c 9.0 H (4.0-6.0) % AST (14-36) U/L 09/26/18 09/26/18 09/27/18 Range/Units 18:30 21:03 03:58 Sodium (137-145) mmol/L Creatinine (0.52-1.04) mg/dL Glucose (74-99) mg/dL POC Glucose (mg/dL) 382 H 180 H 188 H (75-99) mg/dL Hemoglobin A1c (4.0-6.0) % AST (14-36) U/L 09/27/18 09/27/18 09/27/18 Range/Units 05:09 06:49 07:49 Sodium 136 L (137-145) mmol/L Creatinine 0.48 L (0.52-1.04) mg/dL Glucose 176 H (74-99) mg/dL POC Glucose (mg/dL) 170 H 210 H (75-99) mg/dL Hemoglobin A1c (4.0-6.0) % AST 131 H (14-36) U/L 09/27/18 Range/Units 12:22 Sodium (137-145) mmol/L Creatinine (0.52-1.04) mg/dL Glucose (74-99) mg/dL POC Glucose (mg/dL) 133 H (75-99) mg/dL Hemoglobin A1c (4.0-6.0) % AST (14-36) U/L Assessment and Plan (1) Hyperglycemia Current Visit: Yes Status: Acute Code(s): R73.9 - HYPERGLYCEMIA, UNSPECIFIED SNOMED Code(s): 49771179 (2) Hypomagnesemia Current Visit: Yes Status: Acute Code(s): E83.42 - HYPOMAGNESEMIA SNOMED Code(s): 876698347 (3) NSTEMI (non-ST elevated myocardial infarction) Current Visit: Yes Status: Suspected Code(s): I21.4 - NON-ST ELEVATION ( NSTEMI) MYOCARDIAL INFARCTION SNOMED Code(s): 39074741 (4) Dysfunctional uterine bleeding Current Visit: No Status: Acute Code(s): N93.8 - OTHER SPECIFIED ABNORMAL UTERINE AND VAGINAL BLEEDING SNOMED Code(s): 90360022 Plan: Continue current postop treatment. Continue basal bolus insulin with Humalog sliding scale. Anticipate discharge in the next 24-48 hours if stabilizing and cleared by cardiology. See orders otherwise. Time with Patient: Greater than 30
[2018-09-27 17:11] LABS: Glucose,Whole Blood 159 mg/dL (75-99)
[2018-09-27 20:50] LABS: Glucose,Whole Blood 122 mg/dL (75-99)
[2018-09-27] MEDS: INSULIN DETEMIR 100 UNIT/ML 10 ML VIAL SQ SCH (20:59)
[2018-09-28 04:56] LABS: Basophils % (A) 1 %; Eosinophils # (A) 0.1 k/uL (0-0.7); Eosinophils % (A) 1 %; HCT 36.1 % (34.0-46.0); Lymphocytes # (A) 2.5 k/uL (1.0-4.8); Lymphocytes % (A) 30 %; MCH 28.3 pg (25.0-35.0); MCHC 33.2 g/dL (31.0-37.0); MCV 85.4 fL (80.0-100.0); Mean Platelet Volume 7.2; Monocytes # (A) 0.6 k/uL (0-1.0); Monocytes % (A) 7 %; Neutrophils % (A) 60 %; Platelet Count 243 k/uL (150-450); RBC 4.23 m/uL (3.80-5.40); RDW 12.9 % (11.5-15.5); WBC 8.3 k/uL (3.8-10.6)
[2018-09-28 05:07] LABS: ALT 41 U/L (9-52); AST 67 U/L (14-36); Albumin 3.3 g/dL (3.5-5.0); Alkaline Phosphatase 70 U/L (38-126); Anion Gap 8 mmol/L; Blood Urea Nitrogen 20 mg/dL (7-17); Calcium 8.9 mg/dL (8.4-10.2); Carbon Dioxide 28 mmol/L (22-30); Chloride 103 mmol/L (98-107); Glucose 151 mg/dL (74-99); Magnesium 1.6 mg/dL (1.6-2.3); Sodium 139 mmol/L (137-145); Total Bilirubin 0.6 mg/dL (0.2-1.3); Total Protein 6.2 g/dL (6.3-8.2)
[2018-09-28 07:02] LABS: Glucose,Whole Blood 129 mg/dL (75-99)
[2018-09-28] MEDS: INSULIN ASPART 100 UNIT/ML 1 ML 10 ML VIAL SQ SCH ×7 (07:09→20:36)
--- NOTE | 2018-09-28 08:21 | P.PN ---
Subjective Principal diagnosis: This is a patient who is postop day #2 4 status post [place] with multiple stent placement to the LAD. She is feeling much better. She has an underlying history of newly diagnosed insulin dependent diabetes. The patient otherwise feels much better. No voiding difficulties nor no significant nausea, vomiting or diarrhea stated. Anticipate discharge in the next 24 hours if stabilizing. Objective - Vital Signs Vital signs: Vital Signs Temp 98.3 F 09/28/18 00:00 Pulse 87 09/28/18 00:00 Resp 16 09/28/18 00:00 BP 93/64 09/28/18 03:01 Pulse Ox 94 L 09/28/18 00:00 Intake & Output 09/27/18 09/28/18 09/28/18 18:59 06:59 18:59 Intake Total 460 220 Balance 460 220 Weight 87.3 kg Intake: IV 220 Magnesium Sulfate-D5w Pmx 200 1 gm In Dextrose/Water 1 100ml.bag @ 100 mls/hr IVPB Q1H FILIBERTO Rx#: [id number] Sodium Chloride 0.9% 1, 20 000 ml @ 75 mls/hr IV . [id number] FILIBERTO Rx#:[id number] Oral 240 220 Other: Voiding Method Toilet Toilet # Voids 2 1 1 - Constitutional General appearance: Present: average body habitus - EENT Eyes: Absent: PERRLA - Neck Neck: Present: lymphadenopathy - Respiratory Respiratory: bilateral: CTA - Cardiovascular Rhythm: regular - Gastrointestinal General gastrointestinal: Present: soft. Absent: tenderness - Integumentary Integumentary: Present: normal - Labs CBC & Chem 7: 09/28/18 04:26 09/28/18 04:26 Labs: Abnormal Lab Results - Last 24 Hours (Table) 09/27/18 09/27/18 09/27/18 Range/Units 12:22 17:09 20:49 BUN (7-17) mg/dL Glucose (74-99) mg/dL POC Glucose (mg/dL) 133 H 159 H 122 H (75-99) mg/dL AST (14-36) U/L Total Protein (6.3-8.2) g/dL Albumin (3.5-5.0) g/dL 09/28/18 09/28/18 Range/Units 04:26 07:01 BUN 20 H (7-17) mg/dL Glucose 151 H (74-99) mg/dL POC Glucose (mg/dL) 129 H (75-99) mg/dL AST 67 H (14-36) U/L Total Protein 6.2 L (6.3-8.2) g/dL Albumin 3.3 L (3.5-5.0) g/dL Assessment and Plan (1) Hyperglycemia Current Visit: Yes Status: Acute Code(s): R73.9 - HYPERGLYCEMIA, UNSPECIFIED SNOMED Code(s): 73423291 (2) Hypomagnesemia Current Visit: Yes Status: Acute Code(s): E83.42 - HYPOMAGNESEMIA SNOMED Code(s): 176081705 (3) NSTEMI (non-ST elevated myocardial infarction) Current Visit: Yes Status: Suspected Code(s): I21.4 - NON-ST ELEVATION ( NSTEMI) MYOCARDIAL INFARCTION SNOMED Code(s): 45694697 (4) Dysfunctional uterine bleeding Current Visit: No Status: Acute Code(s): N93.8 - OTHER SPECIFIED ABNORMAL UTERINE AND VAGINAL BLEEDING SNOMED Code(s): 87656706 Plan: Continue current regimen of treatment. Basal bolus insulin protocol has controlled her blood sugar properly. We will probably keep her on this regimen for the short-term. I suspect given her less so changes that she could possibly be on a GLP-1 with basal insulin in the future.
[2018-09-28] MEDS: MAGNESIUM SULFATE-D5W PMX 1 GM in DEXTROSE/WATER 1 100ML.BAG IVPB SCH ×2 (09:46→10:48)
[2018-09-28] MEDS: ASPIRIN 81 MG PO SCH (09:47)
[2018-09-28] MEDS: METOPROLOL TARTRATE 12.5 MG TAB PO SCH ×2 (09:48→20:35)
[2018-09-28] MEDS: PANTOPRAZOLE 40 MG TABLET PO SCH (09:48)
[2018-09-28] MEDS: CLOPIDOGREL 75 MG TAB PO SCH (09:48)
[2018-09-28] MEDS: ATORVASTATIN 40 MG TAB PO SCH (09:50)
[2018-09-28] MEDS: LOSARTAN 25 MG TAB PO SCH (09:50)
[2018-09-28 12:12] LABS: Glucose,Whole Blood 129 mg/dL (75-99)
--- NOTE | 2018-09-28 12:49 | ECHOF ---
Referral Reason:look for improvement in function after DE MEASUREMENTS -------- HEIGHT: 165.1 cm WEIGHT: 87.1 kg BP: FINDINGS -------- Sinus rhythm. Limited Study to compare Echo done 09/26/18. Overall left ventricular systolic function is moderate-severely impaired with, an EF between 30 - 35 %. Mid anterior LV wall motion is hypokinetic. Mid anteroseptal LV wall motion is hypokinetic. Apical anterior LV wall motion is hypokinetic. Apical lateral LV wall motion is hypokinetic. Apical septum LV wall motion is hypokinetic. CONCLUSIONS -------- 1. Sinus rhythm. 2. Limited Study to compare Echo done 09/26/18. 3. Overall left ventricular systolic function is moderate-severely impaired with, an EF between 30 - 35 %. 4. Mid anterior LV wall motion is hypokinetic. 5. Mid anteroseptal LV wall motion is hypokinetic. 6. Apical anterior LV wall motion is hypokinetic. 7. Apical septum LV wall motion is hypokinetic. DISPLAY DECORATOR: Barbie Lakhani RDCS
[2018-09-28] MEDS ORDERED: SODIUM CHLORIDE 0.9% 500 ML 500 ML IV ONE (14:21)
[2018-09-28 17:11] LABS: Glucose,Whole Blood 138 mg/dL (75-99)
--- NOTE | 2018-09-28 20:26 | PN ---
PROGRESS NOTE Mrs. Aquino is doing well today. She had some bouts of hypotension last night. I am going to discontinue the Cozaar, cut back the metoprolol and discontinue the Lasix and potassium as well and give her a fluid bolus and see how she does. She is asymptomatic. Physical exam does not reveal any new murmurs or gallops. Lungs are clear. Abdomen and lower extremity exam unchanged. Blood pressure when I saw her was 94 systolic. We will give her a fluid bolus, hold Cozaar, increase activity, see how she does and I plan to repeat an echo to reassess LV function, although it is too soon to see improvement. I will check it in the light of her hypotension and then re-evaluate her tomorrow for possible discharge. We will increase activity and see how she does. I discussed my thoughts in detail with the patient. RILEY / ARNOLDO: [id number] /
[2018-09-28 20:31] LABS: Glucose,Whole Blood 126 mg/dL (75-99)
[2018-09-28] MEDS: INSULIN DETEMIR 100 UNIT/ML 10 ML VIAL SQ SCH (20:47)
[2018-09-29 05:33] LABS: Basophils % (A) 1 %; Eosinophils # (A) 0.1 k/uL (0-0.7); Eosinophils % (A) 2 %; HCT 33.4 % (34.0-46.0); HGB 11.3 gm/dL (11.4-16.0); Lymphocytes % (A) 31 %; MCV 85.4 fL (80.0-100.0); Mean Platelet Volume 7.5; Monocytes # (A) 0.4 k/uL (0-1.0); Monocytes % (A) 6 %; Neutrophils # (A) 3.9 k/uL (1.3-7.7); Neutrophils % (A) 59 %; Platelet Count 227 k/uL (150-450); RBC 3.91 m/uL (3.80-5.40); WBC 6.6 k/uL (3.8-10.6)
[2018-09-29 05:55] LABS: Anion Gap 6 mmol/L; Blood Urea Nitrogen 11 mg/dL (7-17); Calcium 8.3 mg/dL (8.4-10.2); Carbon Dioxide 28 mmol/L (22-30); Chloride 103 mmol/L (98-107); Glucose 149 mg/dL (74-99); Magnesium 1.8 mg/dL (1.6-2.3); Phosphorus 4.6 mg/dL (2.5-4.5); Potassium 3.8 mmol/L (3.5-5.1); Sodium 137 mmol/L (137-145)
[2018-09-29 06:46] LABS: Glucose,Whole Blood 143 mg/dL (75-99)
[2018-09-29] MEDS: INSULIN ASPART 100 UNIT/ML 1 ML 10 ML VIAL SQ SCH ×4 (06:48→12:20)
[2018-09-29] MEDS ORDERED: SODIUM CHLORIDE 0.9% 1,000 ML IV SCH (07:15)
[2018-09-29] MEDS ORDERED: MAGNESIUM SULFATE-D5W PMX 1 GM in DEXTROSE/WATER 1 100ML.BAG IVPB ONE (07:19)
--- NOTE | 2018-09-29 07:51 | P.DS ---
Providers Date of admission: 09/25/18 18:40 Attending physician: Christopher Bangura Consults: 09/25/18 18:31 Consult Physician Urgent Consulting Provider: Alberto Queen Consult Reason/Comments: NSTEMI Do you want consulting provider notified?: Yes 09/26/18 04:06 Consult Physician Routine Consulting Provider: [facility] Consult Reason/Comments: Post Interventional patient Do you want consulting provider notified?: Already Contacted Primary care physician: Christopher Bangura - Discharge Diagnosis(es) (1) Hyperglycemia Current Visit: Yes Status: Acute (2) Hypomagnesemia Current Visit: Yes Status: Acute (3) NSTEMI (non-ST elevated myocardial infarction) Current Visit: Yes Status: Suspected (4) Dysfunctional uterine bleeding Current Visit: No Status: Acute Hospital Course: This discharge summary 43-year-old white female essentially admitted for an STEMI. The patient did quite well but had underlying history diabetes which was undiagnosed until this visit. She is placed on basal bolus protocol and did quite well. She has been tolerating her medications but she has had some episodic vital signs decrease in blood pressure. We will titrate medications appropriate in follow-up in 3-5 days. The patient is stable. Patient Condition at Discharge: Good Plan - Discharge Summary Discharge Rx Participant: No New Discharge Prescriptions: New Aspirin 81 mg PO DAILY #30 chew Atorvastatin [Lipitor] 80 mg PO DAILY #30 tab Clopidogrel [Plavix] 75 mg PO DAILY #30 tab Insulin Aspart [Novolog Flexpen] 8 unit SQ AC-TID #1 insuln.pen Insulin Detemir [Levemir Flextouch] 25 units SQ HS #2 ml Metoprolol Tartrate [Lopressor] 12.5 mg PO BID #60 tab Nitroglycerin Sl Tabs [Nitrostat] 0.4 mg SUBLINGUAL Q5M PRN #50 tab PRN Reason: Chest Pain Continue Ranitidine HCl 150 mg PO ONCE PRN PRN Reason: Gi Upset Discontinued Omeprazole Magnesium [PriLOSEC OTC] 20 mg PO ONCE PRN PRN Reason: Gi Upset Discharge Medication List Ranitidine HCl 150 mg PO ONCE PRN 09/25/18 [History] Aspirin 81 mg PO DAILY #30 chew 09/29/18 [Rx] Atorvastatin [Lipitor] 80 mg PO DAILY #30 tab 09/29/18 [Rx] Clopidogrel [Plavix] 75 mg PO DAILY #30 tab 09/29/18 [Rx] Insulin Aspart [Novolog Flexpen] 8 unit SQ AC-TID #1 insuln.pen 09/29/18 [Rx] Insulin Detemir [Levemir Flextouch] 25 units SQ HS #2 ml 09/29/18 [Rx] Metoprolol Tartrate [Lopressor] 12.5 mg PO BID #60 tab 09/29/18 [Rx] Nitroglycerin Sl Tabs [Nitrostat] 0.4 mg SUBLINGUAL Q5M PRN #50 tab 09/29/18 [Rx ] Follow up Appointment(s)/Referral(s): Christopher Bangura MD [Primary Care Provider] - 3 Days Discharge Disposition: HOME SELF-CARE
[2018-09-29] MEDS: SODIUM CHLORIDE 0.9% 250 ML IV SCH ×6 (08:06→09:59)
--- NOTE | 2018-09-29 08:54 | PN ---
PROGRESS NOTE Mrs. Aquino seems to be a little volume depleted. I will give her 2 boluses of IV fluids, increase activity and see how she does. If she does well, we will discharge her today. We will supplement potassium as well. Blood pressure today is 96/60. S1, S2 heard normally. Lungs are clear. Abdomen and lower extremity exam unchanged. Plan is to give some additional volume boluses, increase activity. Plan for discharge later on today. No Stanislav or ARB because of hypotension. MMODL / IJN: [id number] / MTDD
[2018-09-29] MEDS: POTASSIUM CHLORIDE ER 20 MEQ TAB.ER PO SCH ×2 (09:00→09:54)
[2018-09-29] MEDS: ASPIRIN 81 MG PO SCH (09:00)
[2018-09-29] MEDS: CLOPIDOGREL 75 MG TAB PO SCH (09:01)
[2018-09-29] MEDS: ATORVASTATIN 40 MG TAB PO SCH (09:01)
[2018-09-29] MEDS: PANTOPRAZOLE 40 MG TABLET PO SCH (09:02)
[2018-09-29] MEDS: METOPROLOL TARTRATE 12.5 MG TAB PO SCH (09:03)
[2018-09-29] MEDS ORDERED: INFLUENZA VACCINE (6 MOS+) 60 MCG/0.5 ML SYRINGE IM ONE (09:06)
[2018-09-29 11:49] VITALS: RESP 18
[2018-09-29 12:04] LABS: Glucose,Whole Blood 110 mg/dL (75-99)
[2018-09-29 13:38] VITALS: BP 110/56; PULSE 76; TEMP 98.3
== END 2018-09-29 16:08 | disposition home or self-care (01) | DRG 247 ==
LOC: EC 15:39 → 3SCARD 18:40 → 2SICU 09-26 04:09
PROVIDERS: ADMIT Family Medicine; ATTEND Family Medicine
PROC: B2111ZZ Fluoroscopy of Multiple Coronary Arteries using Low Osmolar Contrast (ICD-10-PCS; 2018-09-26)
PROC: 027035Z Dilation of Coronary Artery, One Artery with Two Drug-eluting Intraluminal Devices, Percutaneous Approach (ICD-10-PCS; principal; 2018-09-26 02:35)
PROC: 4A023N7 Measurement of Cardiac Sampling and Pressure, Left Heart, Percutaneous Approach (ICD-10-PCS; 2018-09-26 02:35)
DX: I21.4 Non-ST elevation (NSTEMI) myocardial infarction (principal); E11.65 Type 2 diabetes mellitus with hyperglycemia; E83.42 Hypomagnesemia; E86.9 Volume depletion, unspecified; I25.10 Atherosclerotic heart disease of native coronary artery without angina pectoris; B37.9 Candidiasis, unspecified; I95.9 Hypotension, unspecified; R00.0 Tachycardia, unspecified; D72.829 Elevated white blood cell count, unspecified; Z88.5 Allergy status to narcotic agent; Z88.1 Allergy status to other antibiotic agents; Z91.040 Latex allergy status; Z82.49 Family history of ischemic heart disease and other diseases of the circulatory system
CPT/HCPCS: 36415; 71045; 71260; 74177; 80048; 80053; 80061; 81001; 82009; 82150; 82550; 82553; 83036; 83690; 83735; 84100; 84484; 85025; 85379; 85610; 85730; 90686; 93005; 93306; 93308; 93458; 96361; 96365; 96366; 96368; 96375; 96376; 99285; C1874

== ENCOUNTER 2019-08-22 06:27 | Observation (INO) | payer BC, OTHER ==
[2019-08-22] MEDS ORDERED: ONDANSETRON 4 MG/2 ML VIAL IVP STA (06:40)
[2019-08-22] MEDS ORDERED: SODIUM CHLORIDE 0.9% 500 ML 500 ML IV STA (06:40)
[2019-08-22] MEDS: SODIUM CHLORIDE 0.9% 1,000 ML IV STA ×2 (06:51→10:12)
[2019-08-22 06:57] LABS: Basophils % (A) 0 %; Eosinophils % (A) 0 %; HCT 42.7 % (34.0-46.0); HGB 14.4 gm/dL (11.4-16.0); Lymphocytes # (A) 0.5 k/uL (1.0-4.8); Lymphocytes % (A) 7 %; MCH 28.6 pg (25.0-35.0); MCHC 33.6 g/dL (31.0-37.0); MCV 85.1 fL (80.0-100.0); Mean Platelet Volume 6.2; Monocytes # (A) 0.3 k/uL (0-1.0); Monocytes % (A) 4 %; Neutrophils # (A) 6.6 k/uL (1.3-7.7); Neutrophils % (A) 88 %; Platelet Count 132 k/uL (150-450); RBC 5.02 m/uL (3.80-5.40); RDW 12.8 % (11.5-15.5); WBC 7.6 k/uL (3.8-10.6)
--- NOTE | 2019-08-22 07:06 | ED ---
General Adult HPI - General Chief complaint: Syncope Stated complaint: Fall/Nausea Time Seen by Provider: 08/22/19 06:32 Source: patient, RN notes reviewed Mode of arrival: ambulatory Limitations: no limitations - History of Present Illness Initial comments: This a 44-year-old female presents emergency Department with chief complaint of nausea fever diaphoresis and syncope. Patient states that she's not below the last couple days but that she may just have a slight cold states that she's been having hot and cold chills, felt that she may have influenza. Patient did admit that she had a recent influenza vaccine. She states that she woke up prior to 6 AM this morning states that she had severe nausea states that she'll not get to the bathroom and states that she passed out. Patient has no complaints of chest pain, shortness of breath. Patient states that she had an [place] in September and states that her presenting symptoms were nausea with mild chest pain and reflux. Patient states that she only has nausea at this time. Patient denies any back pain, flank pain. Patient is a known diabetic current blood sugar 96. She states that she wears a sensor. Patient has no dysuria no hematuria no diarrhea no constipation. Patient does admit that she feels dizzy - Related Data Home Medications Medication Instructions Recorded Confirmed Atorvastatin [Lipitor] 80 mg PO HS 08/22/19 08/22/19 Empagliflozin [Jardiance] 25 mg PO DAILY 08/22/19 08/22/19 Insulin Detemir [Levemir Flextouch] 7 units SQ HS 08/22/19 08/22/19 L.acidoph,Paracasei, B.lactis 1 cap PO DAILY 08/22/19 08/22/19 [Probiotic] Losartan Potassium [Cozaar] 25 mg PO HS 08/22/19 08/22/19 Magnesium Oxide [Mag-Ox] 250 mg PO DAILY 08/22/19 08/22/19 Metoprolol Tartrate [Lopressor] 12.5 mg PO QAM 08/22/19 08/22/19 Previous Rx's Medication Instructions Recorded Aspirin 81 mg PO DAILY #30 chew 09/29/18 Clopidogrel [Plavix] 75 mg PO DAILY #30 tab 09/29/18 Allergies Allergy/AdvReac Type Severity Reaction Status Date / Time latex Allergy Rash/Hives Verified 08/22/19 07:32 codeine AdvReac Nausea & Verified 08/22/19 07:32 Vomiting levofloxacin [From Levaquin] AdvReac Nausea & Verified 08/22/19 07:32 Vomiting Review of Systems ROS Statement: Those systems with pertinent positive or pertinent negative responses have been documented in the HPI. ROS Other: All systems not noted in ROS Statement are negative. Past Medical History Past Medical History: Myocardial Infarction ([place]) Additional Past Medical History / Comment(s): menstrual disorder, current yeast infection, anemia, transfusion 10/2013 History of Any Multi-Drug Resistant Organisms: None Reported Past Surgical History: Ablation, Section, Heart Catheterization With Stent, Tonsillectomy Additional Past Surgical History / Comment(s): benign lymph node removed in neck, D&C Past Anesthesia/Blood Transfusion Reactions: Postoperative Nausea & Vomiting (PONV) Additional Past Anesthesia/Blood Transfusion Reaction / Comment(s): states severe Past Psychological History: No Psychological Hx Reported Smoking Status: Never smoker Past Alcohol Use History: Rare Past Drug Use History: None Reported General Exam Limitations: no limitations General appearance: alert, in no apparent distress, other (Diaphoretic) Head exam: Present: atraumatic, normocephalic, normal inspection Eye exam: Present: normal appearance, PERRL, EOMI. Absent: scleral icterus, conjunctival injection, periorbital swelling ENT exam: Present: normal exam, normal oropharynx, mucous membranes moist, TM's normal bilaterally Neck exam: Present: normal inspection. Absent: tenderness, meningismus, lymphadenopathy Respiratory exam: Present: normal lung sounds bilaterally. Absent: respiratory distress, wheezes, rales, rhonchi, stridor Cardiovascular Exam: Present: normal rhythm, tachycardia, normal heart sounds. Absent: systolic murmur, diastolic murmur, rubs, gallop, clicks GI/Abdominal exam: Present: soft, normal bowel sounds. Absent: distended, tenderness, guarding, rebound, rigid Back exam: Absent: CVA tenderness (R), CVA tenderness (L) Neurological exam: Present: alert, oriented X3, CN II-XII intact, reflexes normal. Absent: motor sensory deficit Skin exam: Present: warm, dry, intact, normal color. Absent: rash Course Vital Signs 08/22/19 08/22/19 08/22/19 06:31 06:45 07:00 Temperature 97.8 F Pulse Rate 104 H 105 H 103 H Respiratory 18 11 L 20 Rate Blood Pressure 91/61 110/75 O2 Sat by Pulse 97 98 Oximetry 08/22/19 08/22/19 07:30 08:00 Temperature Pulse Rate 102 H 99 Respiratory 0 L 19 Rate Blood Pressure 99/70 95/74 O2 Sat by Pulse 100 92 L Oximetry EKG Findings - EKG Comments: EKG Findings:: EKG performed at 6:40 sinus tachycardia rate of 101. RI 150 QRS 68 QT/QTC 342/443 Medical Decision Making - Medical Decision Making Patient presented with severe diaphoresis, nausea and dizziness. Patient labs show mild metabolic acidosis, dehydration with acetone positive. Blood sugar less than 200. Patient's EKG shows no acute changes troponin is negative at this time. Patient will be admitted for repeat cardiac enzymes, fluid hydration and blood sugar monitoring. - Lab Data Result diagrams: 08/22/19 06:46 08/22/19 06:46 Lab Results 08/22/19 08/22/19 08/22/19 Range/Units 06:46 06:46 06:46 WBC 7.6 (3.8-10.6) k/uL RBC 5.02 (3.80-5.40) m/uL Hgb 14.4 (11.4-16.0) gm/dL Hct 42.7 (34.0-46.0) % MCV 85.1 (80.0-100.0) fL MCH 28.6 (25.0-35.0) pg MCHC 33.6 (31.0-37.0) g/dL RDW 12.8 (11.5-15.5) % Plt Count 132 L (150-450) k/uL Neutrophils % 88 % Lymphocytes % 7 % Monocytes % 4 % Eosinophils % 0 % Basophils % 0 % Neutrophils # 6.6 (1.3-7.7) k/uL Lymphocytes # 0.5 L (1.0-4.8) k/uL Monocytes # 0.3 (0-1.0) k/uL Eosinophils # 0.0 (0-0.7) k/uL Basophils # 0.0 (0-0.2) k/uL Sodium 138 (137-145) mmol/L Potassium 3.6 (3.5-5.1) mmol/L Chloride 103 (98-107) mmol/L Carbon Dioxide 20 L (22-30) mmol/L Anion Gap 15 mmol/L BUN 12 (7-17) mg/dL Creatinine 0.72 (0.52-1.04) mg/dL Est GFR (CKD-EPI)AfAm >90 (>60 ml/min/1.73 sqM) Est GFR (CKD-EPI)NonAf >90 (>60 ml/min/1.73 sqM) Glucose 104 H (74-99) mg/dL Plasma Lactic Acid Kar[place] (0.7-2.0) mmol/L Calcium 9.0 (8.4-10.2) mg/dL Total Bilirubin 1.0 (0.2-1.3) mg/dL AST 33 (14-36) U/L ALT 28 (9-52) U/L Alkaline Phosphatase 89 (38-126) U/L Troponin I (0.000-0.034) ng/mL Total Protein 7.7 (6.3-8.2) g/dL Albumin 4.3 (3.5-5.0) g/dL Amylase <30 L (30-110) U/L Lipase 64 (23-300) U/L Urine Color Urine Appearance (Clear) Urine pH (5.0-8.0) Ur Specific [place] (1.001-1.035) Urine Protein (Negative) Urine Glucose (UA) (Negative) Urine Ketones (Negative) Urine Blood (Negative) Urine Nitrite (Negative) Urine Bilirubin (Negative) Urine Urobilinogen (<2.0) mg/dL Ur Leukocyte Esterase (Negative) Urine RBC (0-5) /hpf Urine WBC (0-5) /hpf Ur Squamous Epith Cells (0-4) /hpf Cellular Casts (0) /lpf Hyaline Casts (0-2) /lpf Urine Mucus (None) /hpf Acetone, Qual Positive (Negative) Influenza Type A RNA Not Detected (Not Detectd) Influenza Type B (PCR) Not Detected (Not Detectd) 08/22/19 08/22/19 08/22/19 Range/Units 06:46 06:46 08:00 WBC (3.8-10.6) k/uL RBC (3.80-5.40) m/uL Hgb (11.4-16.0) gm/dL Hct (34.0-46.0) % MCV (80.0-100.0) fL MCH (25.0-35.0) pg MCHC (31.0-37.0) g/dL RDW (11.5-15.5) % Plt Count (150-450) k/uL Neutrophils % % Lymphocytes % % Monocytes % % Eosinophils % % Basophils % % Neutrophils # (1.3-7.7) k/uL Lymphocytes # (1.0-4.8) k/uL Monocytes # (0-1.0) k/uL Eosinophils # (0-0.7) k/uL Basophils # (0-0.2) k/uL Sodium (137-145) mmol/L Potassium (3.5-5.1) mmol/L Chloride (98-107) mmol/L Carbon Dioxide (22-30) mmol/L Anion Gap mmol/L BUN (7-17) mg/dL Creatinine (0.52-1.04) mg/dL Est GFR (CKD-EPI)AfAm (>60 ml/min/1.73 sqM) Est GFR (CKD-EPI)NonAf (>60 ml/min/1.73 sqM) Glucose (74-99) mg/dL Plasma Lactic Acid Kar[place] 0.8 (0.7-2.0) mmol/L Calcium (8.4-10.2) mg/dL Total Bilirubin (0.2-1.3) mg/dL AST (14-36) U/L ALT (9-52) U/L Alkaline Phosphatase (38-126) U/L Troponin I <0.012 (0.000-0.034) ng/mL Total Protein (6.3-8.2) g/dL Albumin (3.5-5.0) g/dL Amylase (30-110) U/L Lipase (23-300) U/L Urine Color Yellow Urine Appearance Turbid H (Clear) Urine pH 5.5 (5.0-8.0) Ur Specific [place] 1.027 (1.001-1.035) Urine Protein 2+ H (Negative) Urine Glucose (UA) 4+ H (Negative) Urine Ketones 4+ H (Negative) Urine Blood Moderate H (Negative) Urine Nitrite Negative (Negative) Urine Bilirubin Negative (Negative) Urine Urobilinogen <2.0 (<2.0) mg/dL Ur Leukocyte Esterase Negative (Negative) Urine RBC 3 (0-5) /hpf Urine WBC 6 H (0-5) /hpf Ur Squamous Epith Cells 4 (0-4) /hpf Cellular Casts 4 (0) /lpf Hyaline Casts 5 H (0-2) /lpf Urine Mucus Occasional H (None) /hpf Acetone, Qual (Negative) Influenza Type A RNA (Not Detectd) Influenza Type B (PCR) (Not Detectd) Disposition Clinical Impression: Metabolic acidosis, Dehydration, Syncope, Nausea Disposition: ADMITTED IP TO THIS HOSP Condition: Fair Referrals: Christopher Bangura MD [Primary Care Provider] - 1-2 days
--- NOTE | 2019-08-22 07:40 | XR ---
EXAMINATION TYPE: XR chest 2V DATE OF EXAM: 08/22/2019 COMPARISON: Chest x-ray and CT September 25, 2018. HISTORY: Pain and syncope. TECHNIQUE: Frontal and lateral views of the chest are obtained. FINDINGS: Overlying EKG leads are present. There is no focal air space opacity, pleural effusion, or pneumothorax seen. The cardiac silhouette size is within normal limits. The osseous structures are intact. IMPRESSION: No acute cardiopulmonary process identified on current study.
[2019-08-22 07:43] LABS: ALT 28 U/L (9-52); AST 33 U/L (14-36); African American GFR (CKD) >90 (>60 ml/min/1.73 sqM); Albumin 4.3 g/dL (3.5-5.0); Alkaline Phosphatase 89 U/L (38-126); Amylase <30 U/L (30-110); Anion Gap 15 mmol/L; Blood Urea Nitrogen 12 mg/dL (7-17); Carbon Dioxide 20 mmol/L (22-30); Chloride 103 mmol/L (98-107); Glucose 104 mg/dL (74-99); Non-African American GFR(CKD) >90 (>60 ml/min/1.73 sqM); Potassium 3.6 mmol/L (3.5-5.1); Sodium 138 mmol/L (137-145); Total Protein 7.7 g/dL (6.3-8.2)
[2019-08-22] MEDS ORDERED: ACETAMINOPHEN TAB 325 MG TAB PO STA (08:10)
[2019-08-22 08:21] LABS: Appearance,Urine Turbid (Clear); Bilirubin,Urine Negative (Negative); Blood,Urine Moderate (Negative); Cellular Casts,Urine 4 /lpf (0); Color,Urine Yellow; Glucose,Urine (UA) 4+ (Negative); Hyaline Casts,Urine 5 /lpf (0-2); Leukocyte Esterase,Urine Negative (Negative); Mucus,Urine Occasional /hpf; Nitrite,Urine Negative (Negative); PH, Urine 5.5 (5.0-8.0); Protein,Urine 2+ (Negative); RBC,Urine 3 /hpf (0-5); Specific Gravity,Urine 1.027 (1.001-1.035); Squamous Epithelial Cell,Urine 4 /hpf (0-4); Urobilinogen,Urine <2.0 mg/dL (<2.0)
[2019-08-22 08:33] LABS: Ketones,Urine 4+ (Negative)
[2019-08-22] MEDS ORDERED: NITROGLYCERIN SL TABS 0.4 MG TAB SUBLINGUAL PRN (09:09)
[2019-08-22] MEDS ORDERED: ONDANSETRON 4 MG/2 ML VIAL IVP PRN (09:10)
[2019-08-22] MEDS ORDERED: SODIUM CHLORIDE 0.9% 1,000 ML IV ONE (10:19)
[2019-08-22] MEDS: SODIUM CHLORIDE 0.9% 1,000 ML IV SCH ×2 (11:44→18:02)
[2019-08-22] MEDS: MAGNESIUM OXIDE 400 MG TAB PO SCH (14:04)
[2019-08-22] MEDS: CLOPIDOGREL 75 MG TAB PO SCH (14:04)
[2019-08-22] MEDS: LACTOBACILLUS ACIDOPH & BULGAR 1 EACH PACKET PO SCH (14:05)
[2019-08-22 14:16] VITALS: BMI 28.8
[2019-08-22] MEDS: METOPROLOL TARTRATE 12.5 MG TAB PO SCH (14:34)
[2019-08-22] MEDS: NON FORMULARY DRUG (Empagliflozin [Jardiance] 25 MG) PO SCH (14:35)
--- NOTE | 2019-08-22 16:11 | P.HPIM ---
History of Present Illness Chief Complaint: Syncope This is a continuing progress note/history and physical on a 44-year-old white female with known history of insulin dependent diabetes and history of myocardial infarction who states that she's been battling upper respiratory and sinus infection type symptoms for the last 5-7 days. She's been battling fever but has been drinking, appropriately, as far she is concerned related to recent starting of Jardiance for diabetes. The patient states she had a syncopal episode after going to the bathroom and washing her face. She was slightly confused upon waking but is now completely alert. No history of head trauma or seizure disorder stated in her history. Nausea was noted. She has not had nausea since having her NH last year no sniffing diarrhea. No known sick contacts are noted. Review of Systems Constitutional: Denies chills, Denies fever Eyes: denies blurred vision, denies pain Ears, nose, mouth and throat: Denies headache, Denies sore throat Cardiovascular: Denies chest pain, Denies shortness of breath Respiratory: Denies cough Gastrointestinal: Denies abdominal pain, Denies diarrhea, Denies nausea, Denies vomiting Genitourinary: Denies dysuria, Denies hematuria Musculoskeletal: Denies myalgias Integumentary: Denies pruritus, Denies rash Past Medical History Past Medical History: Coronary Artery Disease (CAD), Diabetes Mellitus, Hyperlipidemia, Myocardial Infarction ([place]) Additional Past Medical History / Comment(s): IDDM type II, anemia, migraines, Last Myocardial Infarction Date:: 09/25/18 History of Any Multi-Drug Resistant Organisms: None Reported Past Surgical History: Ablation, Section, Heart Catheterization With Stent, Tonsillectomy, Tubal Ligation, Uterine Ablation Additional Past Surgical History / Comment(s): PCI with stent x2 to LAD, benign lymph node from neck, D&C, x2. Past Anesthesia/Blood Transfusion Reactions: Motion Sickness, Postoperative Nausea & Vomiting (PONV) Additional Past Anesthesia/Blood Transfusion Reaction / Comment(s): Pt states severe PONV. Pt has received blood in past without reaction. Date of Last Stent Placement:: 09/25/18 Smoking Status: Never smoker - Past Family History Father Family Medical History: Diabetes Mellitus, Rheumatoid Arthritis (RA) Mother Family Medical History: Cancer Additional Family Medical History / Comment(s): Mother had ovarian cancer that has metastasized. She is currently undergoing treatment. Medications and Allergies Home Medications Medication Instructions Recorded Confirmed Type Aspirin 81 mg PO DAILY #30 chew 09/29/18 08/22/19 Rx Clopidogrel [Plavix] 75 mg PO DAILY #30 tab 09/29/18 08/22/19 Rx Atorvastatin [Lipitor] 80 mg PO HS 08/22/19 08/22/19 History Empagliflozin [Jardiance] 25 mg PO DAILY 08/22/19 08/22/19 History Insulin Detemir [Levemir Flextouch] 7 units SQ HS 08/22/19 08/22/19 History L.acidoph,Paracasei, B.lactis 1 cap PO DAILY 08/22/19 08/22/19 History [Probiotic] Losartan Potassium [Cozaar] 25 mg PO HS 08/22/19 08/22/19 History Magnesium Oxide [Mag-Ox] 250 mg PO DAILY 08/22/19 08/22/19 History Metoprolol Tartrate [Lopressor] 12.5 mg PO QAM 08/22/19 08/22/19 History Allergies Allergy/AdvReac Type Severity Reaction Status Date / Time latex Allergy Rash/Hives Verified 08/22/19 07:32 codeine AdvReac Nausea & Verified 08/22/19 07:32 Vomiting levofloxacin [From Levaquin] AdvReac Nausea & Verified 08/22/19 07:32 Vomiting Physical Exam Vitals: Vital Signs Temp Pulse Pulse Resp BP BP BP 08/22/19 15:38 97.8 F 93 18 100/70 08/22/19 14:03 08/22/19 10:56 97.6 F 85 18 90/59 08/22/19 10:00 86 18 94/57 08/22/19 09:30 90 12 95/69 08/22/19 09:00 101 H 12 96/68 08/22/19 08:30 93 19 95/74 08/22/19 08:00 99 19 95/74 08/22/19 07:30 102 H 0 L 99/70 08/22/19 07:00 103 H 20 110/75 08/22/19 06:45 105 H 11 L 08/22/19 06:31 97.8 F 104 H 18 91/61 BP BP Pulse Ox 08/22/19 15:38 100 08/22/19 14:03 104/67 08/22/19 10:56 89/60 98/65 98 08/22/19 10:00 96 08/22/19 09:30 96 08/22/19 09:00 95 08/22/19 08:30 99 08/22/19 08:00 92 L 08/22/19 07:30 100 08/22/19 07:00 98 08/22/19 06:45 08/22/19 06:31 97 Intake and Output 08/22/19 08/22/19 08/22/19 06:59 14:59 22:59 Other: Voiding Method Toilet Weight 78.471 kg 78.471 kg - Constitutional General appearance: no acute distress - EENT Eyes: EOMI - Neck Neck: no lymphadenopathy - Respiratory Respiratory: bilateral: CTA - Cardiovascular Rhythm: regular Heart sounds: normal: S1, S2 Abnormal Heart Sounds: no S3 Gallop - Gastrointestinal General gastrointestinal: soft, no tenderness - Neurologic Neurologic: CNII-XII intact - Musculoskeletal Musculoskeletal: no gait normal - Psychiatric Psychiatric: A&O x's 3 Results CBC & Chem 7: 08/22/19 06:46 08/22/19 06:46 Labs: Abnormal Lab Results - Last 24 Hours (Table) 08/22/19 08/22/19 08/22/19 Range/Units 06:46 06:46 08:00 Plt Count 132 L (150-450) k/uL Lymphocytes # 0.5 L (1.0-4.8) k/uL Carbon Dioxide 20 L (22-30) mmol/L Glucose 104 H (74-99) mg/dL Amylase <30 L (30-110) U/L Urine Appearance Turbid H (Clear) Urine Protein 2+ H (Negative) Urine Glucose (UA) 4+ H (Negative) Urine Ketones 4+ H (Negative) Urine Blood Moderate H (Negative) Urine WBC 6 H (0-5) /hpf Hyaline Casts 5 H (0-2) /lpf Urine Mucus Occasional H (None) /hpf Thrombosis Risk Factor Assmnt - Choose All That Apply Any of the Below Risk Factors Present?: Yes Each Factor Represents 1 point: Age 41-60 years, Obesity (BMI >25) Other Risk Factors: No Other congenital or acquired thrombophilia - If yes, enter type in comment: No Thrombosis Risk Factor Assessment Total Risk Factor Score: 2 Thrombosis Risk Factor Assessment Level: Low Risk Assessment and Plan (1) History of non-ST elevation myocardial infarction (NSTEMI) Current Visit: Yes Status: Acute Code(s): I25.2 - OLD MYOCARDIAL INFARCTION SNOMED Code(s): 462593233 (2) Dehydration Current Visit: Yes Status: Acute Code(s): E86.0 - DEHYDRATION SNOMED Code(s): 62074304 (3) Nausea Current Visit: Yes Status: Acute Code(s): R11.0 - NAUSEA SNOMED Code(s): 759016181 (4) Syncope Current Visit: Yes Status: Acute Code(s): R55 - SYNCOPE AND COLLAPSE SNOMED Code(s): 363960418 Plan: Rule out any cardiac involvement. If symptoms continue or elevation of cardiac enzymes, consider echocardiogram with cardiology consult. I suspect element of dehydration with infection. Watch blood sugar because of element of hypoglycemia. Advance to controlled carbohydrate diet. Check CBC and CMP in a.m. Anticipate discharge in a.m. Consider also neurologic consult if symptoms change Time with Patient: Greater than 30
[2019-08-22 19:03] LABS: Basophils % (A) 0 %; Eosinophils % (A) 0 %; Lymphocytes # (A) 0.3 k/uL (1.0-4.8); Lymphocytes % (A) 10 %; MCH 28.4 pg (25.0-35.0); MCHC 33.5 g/dL (31.0-37.0); MCV 84.8 fL (80.0-100.0); Mean Platelet Volume 6.9; Monocytes # (A) 0.2 k/uL (0-1.0); Monocytes % (A) 7 %; Neutrophils # (A) 2.7 k/uL (1.3-7.7); Neutrophils % (A) 80 %; Platelet Count 102 k/uL (150-450); RBC 4.24 m/uL (3.80-5.40); WBC 3.3 k/uL (3.8-10.6)
[2019-08-22] MEDS ORDERED: ATORVASTATIN 80 MG TAB PO SCH (21:00)
[2019-08-22] MEDS ORDERED: INSULIN DETEMIR (LEVEMIR) 100 UNIT/ML SYR SQ SCH (21:00)
[2019-08-22] MEDS ORDERED: LOSARTAN 25 MG TAB PO SCH (21:00)
[2019-08-23] MEDS: SODIUM CHLORIDE 0.9% 1,000 ML IV SCH ×2 (02:27→08:45)
[2019-08-23 06:34] LABS: ALT 28 U/L (9-52); AST 28 U/L (14-36); African American GFR (CKD) >90 (>60 ml/min/1.73 sqM); Albumin 3.1 g/dL (3.5-5.0); Alkaline Phosphatase 61 U/L (38-126); Anion Gap 9 mmol/L; Blood Urea Nitrogen 9 mg/dL (7-17); Carbon Dioxide 21 mmol/L (22-30); Chloride 112 mmol/L (98-107); Cholesterol 77 mg/dL (<200); Glucose 79 mg/dL (74-99); HDL Cholesterol 21 mg/dL (40-60); LDL Cholesterol,Calculated 35 mg/dL (0-99); Non-African American GFR(CKD) >90 (>60 ml/min/1.73 sqM); Potassium 3.8 mmol/L (3.5-5.1); Sodium 142 mmol/L (137-145); Total Bilirubin 0.4 mg/dL (0.2-1.3); Triglycerides 107 mg/dL (<150)
[2019-08-23] MEDS ORDERED: ACETAMINOPHEN TAB 325 MG TAB PO PRN (06:49)
[2019-08-23 07:43] VITALS: BP 104/70; PULSE 78; RESP 16; TEMP 98.2
--- NOTE | 2019-08-23 07:51 | P.DS ---
Providers Date of admission: 08/22/19 09:08 Attending physician: Christopher Bangura Primary care physician: Christopher Bangura - Discharge Diagnosis(es) (1) History of non-ST elevation myocardial infarction (NSTEMI) Current Visit: Yes Status: Acute (2) Dehydration Current Visit: Yes Status: Acute (3) Nausea Current Visit: Yes Status: Acute (4) Syncope Current Visit: Yes Status: Acute Hospital Course: This discharge summary 44-year-old white female essentially admitted for syncopal episode. The patient was essentially observed because of low blood sugar and dehydration. She had episodes of slight hyperglycemia and we will discontinue Levemir because of its low-dose for the next couple days to see if she actually does still need long-acting insulin. We will discharged in stable condition to follow-up with me in 2-3 days. Patient Condition at Discharge: Fair Plan - Discharge Summary Discharge Rx Participant: No New Discharge Prescriptions: Continue Aspirin 81 mg PO DAILY #30 chew Clopidogrel [Plavix] 75 mg PO DAILY #30 tab L.acidoph,Paracasei, B.lactis [Probiotic] 1 cap PO DAILY Metoprolol Tartrate [Lopressor] 12.5 mg PO QAM Losartan Potassium [Cozaar] 25 mg PO HS Empagliflozin [Jardiance] 25 mg PO DAILY Atorvastatin [Lipitor] 80 mg PO HS Magnesium Oxide [Mag-Ox] 250 mg PO DAILY Discontinued Insulin Detemir [Levemir Flextouch] 7 units SQ HS Discharge Medication List Aspirin 81 mg PO DAILY #30 chew 09/29/18 [Rx] Clopidogrel [Plavix] 75 mg PO DAILY #30 tab 09/29/18 [Rx] Atorvastatin [Lipitor] 80 mg PO HS 08/22/19 [History] Empagliflozin [Jardiance] 25 mg PO DAILY 08/22/19 [History] L.acidoph,Paracasei, B.lactis [Probiotic] 1 cap PO DAILY 08/22/19 [History] Losartan Potassium [Cozaar] 25 mg PO HS 08/22/19 [History] Magnesium Oxide [Mag-Ox] 250 mg PO DAILY 08/22/19 [History] Metoprolol Tartrate [Lopressor] 12.5 mg PO QAM 08/22/19 [History] Follow up Appointment(s)/Referral(s): Christopher Bangura MD [Primary Care Provider] - 3 Days Discharge Disposition: HOME SELF-CARE
[2019-08-23] MEDS: CLOPIDOGREL 75 MG TAB PO SCH (08:45)
[2019-08-23] MEDS: LACTOBACILLUS ACIDOPH & BULGAR 1 EACH PACKET PO SCH (08:45)
[2019-08-23] MEDS: MAGNESIUM OXIDE 400 MG TAB PO SCH (08:45)
[2019-08-23] MEDS: NON FORMULARY DRUG (Empagliflozin [Jardiance] 25 MG) PO SCH (08:45)
[2019-08-23] MEDS: METOPROLOL TARTRATE 12.5 MG TAB PO SCH (08:45)
[2019-08-23] MEDS ORDERED: ASPIRIN 325 MG TAB PO SCH (09:00)
== END 2019-08-23 09:03 | disposition home or self-care (01) ==
LOC: EC 06:27 → 1SOBS 09:08
PROVIDERS: ADMIT Family Medicine; ATTEND Family Medicine
DX: R55 Syncope and collapse (principal); E86.0 Dehydration; E11.649 Type 2 diabetes mellitus with hypoglycemia without coma; E87.2 Acidosis; R50.9 Fever, unspecified; R09.89 Other specified symptoms and signs involving the circulatory and respiratory systems; N92.6 Irregular menstruation, unspecified; D64.9 Anemia, unspecified; E66.9 Obesity, unspecified; Z68.28 Body mass index [BMI] 28.0-28.9, adult; G43.909 Migraine, unspecified, not intractable, without status migrainosus; Z79.4 Long term (current) use of insulin; Z79.02 Long term (current) use of antithrombotics/antiplatelets; Z79.82 Long term (current) use of aspirin; Z79.899 Other long term (current) drug therapy; Z88.5 Allergy status to narcotic agent; Z88.1 Allergy status to other antibiotic agents; Z91.040 Latex allergy status; I25.2 Old myocardial infarction; Z95.5 Presence of coronary angioplasty implant and graft; Z98.51 Tubal ligation status; Z83.3 Family history of diabetes mellitus; Z80.41 Family history of malignant neoplasm of ovary; Z82.61 Family history of arthritis
CPT/HCPCS: 93005 ×2; 96361 ×3; 96374; 99285; 36415; 80061; 80053 ×2; 82150; 82009; 83605; 83690; 84484; 85025; 81001; 87502; 71046; G0378 ×2; J2405

== ENCOUNTER → 2021-09-10 | Outpatient (CLI) | payer OTHER ==
--- NOTE | 2021-09-10 13:58 | US ---
EXAMINATION TYPE: US abdomen complete DATE OF EXAM: 09/10/2021 COMPARISON: NONE CLINICAL HISTORY: 46-year-old female R35.0 Frequency of micturition. TECHNIQUE: Multiple sonographic images of the abdomen are obtained. FINDINGS: EXAM MEASUREMENTS: Liver Length: 15.7 cm Gallbladder Wall: 0.2 cm CBD: 0.5 cm Spleen: 10.6 cm Right Kidney: 10.4x5.5x5.4 cm Left Kidney: 11.0x5.1x6.1 cm Coach Cleaner note: Incidental cystic lesion of the left ovary 2.7x2.1x2.0cm Pancreas: Obscured by bowel gas Liver: Homogeneous appearance. No focal lesion. Gallbladder: wnl Evidence for sonographic Arrington's sign: No CBD: wnl Spleen: wnl Right Kidney: No hydronephrosis or masses seen Left Kidney: No hydronephrosis or masses seen Upper IVC: wnl Abd Aorta: wnl Underdistention of the bladder limits its evaluation. IMPRESSION: 1. No hydronephrosis. 2. No gallstones or biliary ductal dilatation. 3. Underdistention of the bladder limits its evaluation. 4. Incidental cystic lesion of the left ovary measuring 2.7 cm. This may represent a dominant follicl e or functional cyst. A 6-8 week follow-up pelvic ultrasound can reassess.
== END | disposition home or self-care (01) ==
LOC: RADUSWWP 12:42
PROVIDERS: ATTEND Family Medicine
DX: N83.202 Unspecified ovarian cyst, left side (principal); R35.0 Frequency of micturition
CPT/HCPCS: 76700